=== PATIENT | male | born 1950 | race Caucasian/White ===

== ENCOUNTER 2019-10-28 00:26 | Outpatient (CLI) | payer MEDICARE, SELFPAY ==
[2019-10-28 18:28] LABS: SARS-CoV-2 RNA PCR Negative
== END 2019-10-28 00:27 | disposition home or self-care (01) ==
LOC: ANHCOVIDDT 00:27
PROVIDERS: PCP Internal Medicine; Visit Provider Urology
DX: Z01.812 Encounter for preprocedural laboratory examination (principal); Z20.828 Contact with and (suspected) exposure to other viral communicable diseases
CPT/HCPCS: 87635; C9803; U0003

== ENCOUNTER 2019-10-30 04:24 | Day surgery (SDC) | payer MEDICARE, SELFPAY ==
[2019-10-28 13:39] VITALS: BMI 27.0
[2019-10-30] VITALS (8 sets, daily range): BP systolic 105–126; BP diastolic 60–80; PULSE 80–104; RESP 14–24; TEMP 36.1–36.8; O2SAT 94–98
--- NOTE | ~2019-10-30 | XR_ITS ---
XR abdomen/kub 1V 10/30/2019 09:16 Indication: Left renal stone Procedure: KUB Comparison: No prior studies for comparison. Findings: Bowel gas pattern is nonobstructive. Moderate colonic fecal loading. There are left renal s tones, largest measuring 1.8 cm. Moderate lumbar spondylosis. Impression: 1: Left nephrolithiasis. Reviewed, dictated and finalized at location B. Impression: 1: Left nephrolithiasis.
--- NOTE | 2019-10-30 08:22 | ECG_ITS ---
Measurements Intervals [place] Rate: 100 P: 85 MA: 170 QRS: 263 QRSD: 110 T: 75 QT: 336 QTc: 435 Interpretive Statements SINUS TACHYCARDIA ATRIAL PREMATURE COMPLEX RIGHT AXIS DEVIATION INTRAVENTRICULAR CONDUCTION DELAY BORDERLINE R WAVE PROGRESSION, ANTERIOR LEADS INFERIOR INFARCT, AGE INDETERMINATE ABNORMAL ECG Electronically Signed On 10-30-2019 10:45:57 CDT by Adilson Anthony D.O.
--- NOTE | 2019-10-30 09:29 | WPDHPUPDATE1 ---
History and Physical Update Update Date/Time: 10/30/19 09:29 History and Physical has been reviewed, including an updated exam of the patient. There are NO changes in the patient's condition. Risks, benefits, and alternatives have been discussed and questions answered. Patient agrees to proceed with procedure. Plan for eswl left upj calculus.
[2019-10-30] MEDS: LACTATED RINGERS 1,000 ML 30 ML IV CONT ×2 (09:35→10:53)
--- NOTE | 2019-10-30 09:44 | P.PNAN_ITS ---
Anes - Initial Pre Proc Eval Procedure: Operation Date: 10/30/19 11:00 Proposed Procedures p Left Ureteral Extracorporeal Shock Wave Lithotripsy - Kash Guillory MD Date/Time: 10/30/19 09:44 Surgeon: Kash Guillory MD Pre Op Diagnosis: Left UPJ Stone Patient Data Age: 69 Gender: M Height: 1.75 m Weight: 88.6 kg Allergies Allergy/AdvReac Type Severity Reaction Status Date / Time No Known Allergies Allergy Mild Verified 10/28/19 13:30 Home Medications Medication Instructions Recorded Confirmed Type amlodipine 5 mg PO QAM 10/28/19 10/28/19 History aspirin [Aspirin Low Dose] 81 mg PO DAILY 10/28/19 10/28/19 History chlorthalidone 25 mg PO QAM 10/28/19 10/28/19 History hydrocodone-acetaminophen 1 tablet PO Q6H PRN 10/28/19 10/28/19 History metoprolol succinate 25 mg PO QAM 10/28/19 10/28/19 History multivit with min-folic acid 0.4 mg PO QAM 10/28/19 10/28/19 History [Daily Multiple For Men] ondansetron 4 mg PO Q6H PRN 10/28/19 10/28/19 History Patient hx anesthesia problems: none Family hx anesthesia problems: none [facility] Past Medical History Medical History (Updated 10/30/19 @ 09:45 by Dave Gtz DO) COPD (chronic obstructive pulmonary disease) History of tachycardia high baseline HR - 90-115, controlled with metoprolol History of ulcer disease Hypertension Osteoarthritis Social History Social History Smoking packs per day: 1.5 Smoking cigarettes per day: 30.0 Years smoked: 51 Smoking pack-years: 76.50 Smoking status: Current every day smoker Alcohol use details: FEW/YEAR Substance use: never Living arrangements: alone Spiritual care concerns: No Anes - Eval Final PreProcedure Day of Procedure 10/30/19 09:44 Patient weight: overweight Heart: regular rate and rhythm Lungs: clear to auscultation and normal air movement Airway: Mallampati scale class 1 Neurological: alert and oriented Last oral intake: >/= 8 hours ASA classification: III Emergent: no Anesthetic plan: proceed Anesthesia type and monitoring: general LMA and standard monitoring Informed Consent: The patient's anesthetic plan and its attendant risks and benefits were discussed with the patient/family/POA. Questions were solicited and answers provided to the satisfaction of the patient/family/POA.
[2019-10-30] MEDS: ceFAZolin 2 GM/D5W 50 ML 2 GM/50 ML BAG IVPB (10:05)
--- NOTE | 2019-10-30 10:50 | PM.PROC ---
Procedure Note - Detailed Date of procedure: 10/30/19 Pre-op diagnosis: Left UPJ Stone Post-op diagnosis: same Procedure performed: ESWL left UPJ calculus 1.6 cm Description of procedure: patient is taken to the operative suite and correctly identified. Once anesthesia was obtained the stone was localized in both planes. Two thousand five hundred shocks were given to the stone there appeared to be fragmentation. Patient was taken recovery room stable condition. He will follow up in 7-10 days with a KUB. Anesthesia: GLMA Surgeon: Kash Guillory MD Drains: No Packing: No Pathology: none sent Complications: No immediate complications Condition: stable Disposition: PACU
== END 2019-10-30 12:30 | disposition home or self-care (01) ==
PROVIDERS: PCP Internal Medicine; Visit Provider Urology
PROC: (CPT 50590; principal; 2019-10-30 11:00)
DX: N20.1 Calculus of ureter (principal); I10 Essential (primary) hypertension; J44.9 Chronic obstructive pulmonary disease, unspecified; R00.0 Tachycardia, unspecified; Z87.11 Personal history of peptic ulcer disease; Z79.82 Long term (current) use of aspirin; F17.200 Nicotine dependence, unspecified, uncomplicated
CPT/HCPCS: 50590; 74018; 93005; J0690; J1100; J2250; J2370; J2405; J2704; J3010; J7120

== ENCOUNTER 2019-11-02 10:38 | Outpatient (CLI) | payer MEDICARE, SELFPAY ==
--- NOTE | ~2019-11-02 | XR_ITS ---
XR abdomen/kub 1V 11/02/2019 11:01 Indication: Kidney stones Procedure: KUB Comparison: 10/30/2019 Findings: There are bilateral renal stones predominately on the left. Bowel gas pattern is nonobstruc tive. Moderate colonic fecal loading. Moderate lumbar spondylosis. Impression: 1: Bilateral nephrolithiasis with fragmentation of left renal stones since prior examination, consist ent with lithotripsy. Reviewed, dictated and finalized at location A. Impression: 1: Bilateral nephrolithiasis with fragmentation of left renal stones since prio r examination, consistent with lithotripsy.
== END 2019-11-02 10:39 | disposition home or self-care (01) ==
PROVIDERS: PCP Internal Medicine; Visit Provider Urology
DX: N20.0 Calculus of kidney (principal)
CPT/HCPCS: 74018

== ENCOUNTER 2019-11-30 11:02 | Outpatient (CLI) | payer MEDICARE, SELFPAY ==
--- NOTE | ~2019-11-30 | XR_ITS ---
XR abdomen/kub 1V 11/30/2019 11:18 Indication: Left kidney stone Procedure: KUB Comparison: 11/02/2019 Findings: There are bilateral renal stones. Decreased stone burden in the left kidney compared with p rior examination. Bowel gas pattern is nonobstructive. Moderate colonic fecal loading. Moderate lumba r spondylosis. Impression: 1:Bilateral nephrolithiasis with decreased stone burden in the left kidney compared with 11/02/2019. Reviewed, dictated and finalized at location B. Impression: 1:Bilateral nephrolithiasis with decreased stone burden in the left kidney comp ared with 11/02/2019.
== END 2019-11-30 11:03 | disposition home or self-care (01) ==
PROVIDERS: PCP Internal Medicine; Visit Provider Urology
DX: N20.0 Calculus of kidney (principal)
CPT/HCPCS: 74018

== ENCOUNTER 2020-09-26 08:09 | Outpatient (CLI) | payer MEDICARE, SELFPAY ==
[2020-09-26 09:13] LABS: Anion Gap 2 mmol/L (8-16); Blood Urea Nitrogen 15 mg/dL (9-20); Calcium 9.2 mg/dL (8.4-10.2); Carbon Dioxide 32 mmol/L (22-30); Chloride 102 mmol/L (98-107); Estimated Glomerular Filt Rate > 60; Glucose 93 mg/dL (65-110); Potassium 3.9 mmol/L (3.4-5.0); Sodium 136 mmol/L (137-145)
== END 2020-09-26 08:10 | disposition home or self-care (01) ==
PROVIDERS: Anesthesiology; PCP Internal Medicine; Visit Provider Surgery
DX: I10 Essential (primary) hypertension (principal)
CPT/HCPCS: 36415; 80048

== ENCOUNTER 2020-09-29 04:48 | Day surgery (SDC) | payer MEDICARE, SELFPAY ==
[2020-09-21 13:45] VITALS: BMI 26.9
[2020-09-29 10:09] VITALS: BP 123/75; PULSE 100; RESP 20; TEMP 36.7; O2SAT 96
[2020-09-29] MEDS: LACTATED RINGERS 1,000 ML 30 ML IV CONT ×2 (10:50→13:13)
--- NOTE | 2020-09-29 11:09 | P.PNAN_ITS ---
Anes - Initial Pre Proc Eval Procedure: Operation Date: 09/29/20 12:00 Proposed Procedures p Excision Skin Lesion Of Right Ankle - Paul Gonzalez MD Date/Time: 09/29/20 11:09 Surgeon: Paul Gonzalez MD Pre Op Diagnosis: pigmentation nevus of ankle Patient Data Age: 70 Gender: M Height: 1.77 m Weight: 85.8 kg Last Vital Signs Temp 36.7 C 09/29/20 10:09 Pulse 100 09/29/20 10:09 Resp 20 09/29/20 10:09 BP 123/75 09/29/20 10:09 Pulse Ox 96 09/29/20 10:09 Allergies Allergy/AdvReac Type Severity Reaction Status Date / Time No Known Allergies Allergy Mild Verified 09/29/20 10:41 Home Medications Medication Instructions Recorded Confirmed Type Daily Multiple For Men 0.4 mg PO QAM 10/28/19 09/29/20 History amlodipine 5 mg PO QAM 10/28/19 09/29/20 History aspirin [Aspirin Low Dose] 81 mg PO DAILY 10/28/19 09/29/20 History chlorthalidone 25 mg PO QAM 10/28/19 09/29/20 History metoprolol succinate 25 mg PO QAM 10/28/19 09/29/20 History celecoxib 200 mg capsule 200 mg PO DAILY 08/26/20 09/29/20 History umeclidinium-vilanterol [Anoro 1 ea INHALATION PRN PRN 09/21/20 09/29/20 History Ellipta] Patient hx anesthesia problems: none Family hx anesthesia problems: none [facility] Past Medical History Medical History COPD (chronic obstructive pulmonary disease) History of kidney stones History of tachycardia high baseline HR - 90-115, controlled with metoprolol History of ulcer disease Hypertension Osteoarthritis Surgical History Surgical History H/O nephrolithotomy with removal of calculi Family History Family History Father , age 80 Acute myocardial infarction Malignant neoplasm of prostate Diabetes mellitus Mother , age 93 Acute myocardial infarction Heart disease Sibling , age 62 Acute myocardial infarction Social History Social History Smoking packs per day: 1.5 Smoking cigarettes per day: 30.0 Years smoked: 50 Smoking pack-years: 75.00 Smoking status: Current every day smoker Tobacco type: cigarettes Alcohol intake: current Alcohol use details: FEW/YEAR Substance use: never Living arrangements: alone Spiritual care concerns: No Anes - Eval Final PreProcedure Day of Procedure 09/29/20 11:09 Patient weight: overweight Heart: regular rate and rhythm Lungs: clear to auscultation Airway: Mallampati scale class II Neurological: alert and oriented Last oral intake: >/= 8 hours ASA classification: III Emergent: no Anesthetic plan: proceed Anesthesia type and monitoring: general GIVS and standard monitoring Informed Consent: The patient's anesthetic plan and its attendant risks and benefits were discussed with the patient/family/POA. Questions were solicited and answers provided to the satisfaction of the patient/family/POA.
--- NOTE | 2020-09-29 12:22 | WPDHPUPDATE1 ---
History and Physical Update Update Date/Time: 09/29/20 12:22 History and Physical has been reviewed, including an updated exam of the patient. There are NO changes in the patient's condition. Risks, benefits, and alternatives have been discussed and questions answered. Patient agrees to proceed with procedure.
[2020-09-29] MEDS: ceFAZolin 2 GM/D5W 50 ML 2 GM/50 ML BAG IVPB (12:26)
[2020-09-29] MEDS: BUPIVACAINE/EPINEPHRINE 0.5% 50 ML VIAL (12:36)
[2020-09-29 13:13] VITALS: BP 101/69; PULSE 86; RESP 14
--- NOTE | 2020-09-29 13:32 | W.PM.PROC2 ---
Procedure Note - Detailed Date of Procedure 09/29/20 Pre-op Diagnosis pigmentation nevus of ankle Post-op Diagnosis same Procedure Performed Excision 2.5 cm pigmented nevus right ankle with 1 mm margins, 2.7 cm excision. 9 cm layered closure. 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 It got larger and the center changed color such that it had less pigment. Due to the changes in the nevus, he is taken to surgery now for complete excision. Findings None significant Description of Procedure patient was checked in the preoperative holding area. He was taken to surgery and IV sedation was administered. Prep and drape of the right ankle was carried out. The proposed elliptical excision was marked on the ankle. Local was infiltrated in the area of the anticipated incision. Incision was made and the lesion was excised. The resultant defect was measured and was 9 cm in length. Margins around the lesion were at least 1 mm. The wound was made hemostatic with the cautery. I undermined the distal and proximal skin edges with mostly blunt dissection. The wound was then closed using subcuticular interrupted 3 0 Vicryl suture. There was a considerable amount of tension during the closure and the foot had to be dorsiflexed to minimize this tension. Eventually the subcuticular sutures were placed. We then used vertical mattress sutures of 3 0 nylon to close the skin. The wound was dressed with Xeroform gauze fluffs Kerlix wrap and Spencer wrap. Patient was awakened and taken to outpatient surgery in good condition. Sponge and needle counts were correct x2. Estimated Blood Loss 5 Drains No Packing No Pathology yes ( Right ankle pigmented nevus) Complications None Condition stable Disposition same day
[2020-09-29 13:40] VITALS: BP 105/67; PULSE 77; RESP 14
[2020-09-29 14:10] VITALS: BP 112/68; PULSE 83; RESP 14
== END 2020-09-29 14:15 | disposition home or self-care (01) ==
PROVIDERS: PCP Internal Medicine; Visit Provider Surgery
PROC: (CPT 11403; principal; 2020-09-29 12:00)
DX: L82.1 Other seborrheic keratosis (principal); J44.9 Chronic obstructive pulmonary disease, unspecified; I10 Essential (primary) hypertension; M19.90 Unspecified osteoarthritis, unspecified site; Z79.82 Long term (current) use of aspirin; F17.210 Nicotine dependence, cigarettes, uncomplicated
CPT/HCPCS: 11403; 12034; 88305; J0690; J2704; J3010; J7120

== ENCOUNTER 2021-01-09 07:29 | Outpatient (RCR) | payer MEDICARE, SELFPAY ==
[2020-12-19 12:44] VITALS: BMI 28.2
--- NOTE | 2020-12-26 08:08 | WPDWOUNDNOTE ---
Wound Care Note Date/Time: 12/26/20 08:08 History: patient underwent excision of a pigmented nevus of the right ankle on 09/29/2020. 9 cm layered closure was performed. Patient is a smoker and has developed a chronic wound as the wound edges . Wound history: Central portion of wound developed necrosis and leaving a chronic right ankle wound. This was treated in the office with silver gel dressing and gauze daily. He was last seen in the office on November 29, 2020. he was referred to [facility] and was initially evaluated on 12/19/2020. Mepilex transfer was added to the silver gauze daily dressings. Also applying gentamicin ointment to the wound bed. Wound approximation: No Wound width: 1.7 cm Wound length: 0.4 cm Wound depth: 0.2 cm Drainage: pink, serous Surrounding tissue appearance: dry, healing Tunneling: none Percentage granulation tissue: 100% Treatment/Procedures: none Dressings: continue gentamicin ointment and silver gel to wound bed with Mepilex border daily. Wound is healing nicely at this point. Recheck in 2 weeks. Assessment and Plan Assessment and plan (1) Open wound of right lower leg: Qualifiers: Encounter type: subsequent encounter Qualified Code(s): S81.801D - Unspecified open wound, right lower leg, subsequent encounter Code(s): S81.801A - Unspecified open wound, right lower leg, initial encounter Status: Chronic Assessment and Plan: Greatly reduced in length. Also less with. Making good strides. Continue gentamicin ointment, silver gel and Mepilex transfer daily. Recheck in 2 weeks. (2) Tobacco abuse: Code(s): Z72.0 - Tobacco use Status: Chronic Assessment and Plan: Advised to cut back or quit. Review of Systems Review of Systems: All systems reviewed & are unremarkable except as noted in HPI and below ( Wound care note) Exam Extrem: Right lower extremity: ankle ( right ankle open wound -see details in Wound note.)
--- NOTE | 2021-01-10 17:25 | WPDWOUNDNOTE ---
Wound Care Note Date/Time: 01/10/21 17:25 History: Excision of a benign mole from left lower ankle. Wound history: Center of the wound edges necrosed leaving a chronic wound. He has been treating this with silver gel and gentamicin ointment as well as Mepilex transfer and gauze daily. Wound approximation: No Wound width: 0.7 cm Wound length: 0.2 cm Wound depth: 0.1 cm Drainage: serosanguineous Surrounding tissue appearance: healthy, dry Tunneling: none Percentage granulation tissue: 100 Treatment/Procedures: none Dressings: continue gentamicin ointment with silver gel Mepilex transfer and gauze daily. Wound is nearly healed. Discontinue dressing changes once there are no open areas. Assessment and Plan Assessment and plan (1) Open wound of right lower leg: Qualifiers: Encounter type: subsequent encounter Qualified Code(s): S81.801D - Unspecified open wound, right lower leg, subsequent encounter Code(s): S81.801A - Unspecified open wound, right lower leg, initial encounter Status: Chronic Assessment and Plan: wound should be closed within another 2 weeks. Continue present wound care until completely closed then discontinue. No further follow-up planned. If wound does not heal or if free opens please call and I will be happy to see him back in the office. (2) Tobacco abuse: Code(s): Z72.0 - Tobacco use Status: Chronic Assessment and Plan: Advised to decrease or quit smoking. No doubt this played a role in his wound healing. Review of Systems Review of Systems: All systems reviewed & are unremarkable except as noted in HPI and below ( Wound care note) Exam Extrem: Right lower extremity: ankle ( nearly healed small residual open wound)
== END 2021-03-03 12:05 | disposition home or self-care (01) ==
LOC: ANHWOC 07:29
PROVIDERS: PCP Internal Medicine; Visit Provider Surgery
DX: S81.801D Unspecified open wound, right lower leg, subsequent encounter (principal)
CPT/HCPCS: 99212; 99213; A9270; G0463

== ENCOUNTER 2021-01-11 08:16 | Outpatient (CLI) | payer MEDICARE, SELFPAY ==
--- NOTE | ~2021-01-11 | US_ITS ---
EXAMINATION: US art doppler w press LE BI DATE: 01/11/2021 09:00 INDICATION: Peripheral arterial disease. Claudication. TECHNIQUE: Segmental pressures and plethysmographic and Doppler waveforms of the brachial and lower e xtremity arteries were obtained. COMPARISON: None. FINDINGS: Right and left brachial artery pressures of 120 mm Hg and 135 mm Hg, respectively, are concordant (no rmal difference <= 30 mmHg). The right high-thigh pressure index is 1.25 (normal > 1.2). The right ankle-brachial index (NALINI) is 1 .14 (normal >= 0.9-1.0). The right great toe-brachial index (TBI) is 0.61 (normal >= 0.65). Arterial Doppler waveforms are at least triphasic in common femoral artery and superficial femoral artery and biphasic in popliteal artery and at the ankle. The left high-thigh pressure index is 1.16. The left NALINI is 1.11. The left TBI is 0.61. Arterial Dopp ler waveforms are at least triphasic in common femoral artery, biphasic in superficial femoral artery and popliteal artery, and at least triphasic at the ankle. IMPRESSION: 1. Normal ABIs and mildly decreased TBIs, consistent with arterial occlusive disease. Note that ABIs may be overestimated if arteries are calcified. Reviewed, dictated and finalized at location A. [employer] IMPRESSION: 1. Normal ABIs and mildly decreased TBIs, consistent with arterial occlusive di sease. Note that ABIs may be overestimated if arteries are calcified.
== END 2021-01-11 08:17 | disposition home or self-care (01) ==
LOC: ANHIMG 08:18
PROVIDERS: PCP Internal Medicine; Visit Provider Internal Medicine
DX: I73.9 Peripheral vascular disease, unspecified (principal)
CPT/HCPCS: 93923

== ENCOUNTER 2021-03-13 01:31 | Day surgery (SDC) | payer MEDICARE, SELFPAY ==
[2021-03-01 14:29] VITALS: BMI 29.0
[2021-03-13 10:19] VITALS: BP 130/80; PULSE 130; RESP 16; TEMP 35.8; O2SAT 96; BMI 28.5
--- NOTE | 2021-03-13 10:20 | SUR.PREOP ---
Dr. Lopez made aware of the 130 heart rate, per pt he did take his metoprolol this am at 0815.
--- NOTE | 2021-03-13 10:21 | WPDGICN ---
Assessment and Plan Assessment and plan (1) Encounter for screening colonoscopy: Code(s): Z12.11 - Encounter for screening for malignant neoplasm of colon Status: Acute Assessment and Plan: Patient presents for neoplasia screening colonoscopy. Appears be at average risk for colon polyps. Further recommendations will be given after endoscopy. GI Consult Note Consult date/time: 03/13/21 10:21 HPI: Sunny Saavedra is a 70 year old male Presents for screening colonoscopy. Patient's current weight appetite and bowel movements are normal. Patient states that he has had no blood in his stools. His family history is noncontributory. He presents for neoplasia screening colonoscopy. Review of Systems Review of Systems: All systems reviewed & are unremarkable except as noted in HPI and below PMFSH Past Medical History Medical History COPD (chronic obstructive pulmonary disease) History of kidney stones History of tachycardia high baseline HR - 90-115, controlled with metoprolol History of ulcer disease Hypertension Osteoarthritis Surgical History Surgical History H/O nephrolithotomy with removal of calculi History of excision of lesion 09/29/20 Excision 2.5 cm pigmented nevus right ankle with 1 mm margins, 2.7 cm excision. 9 cm layered closure. Family History Family History Father , age 80 Acute myocardial infarction Malignant neoplasm of prostate Diabetes mellitus Mother , age 93 Acute myocardial infarction Heart disease Sibling , age 62 Acute myocardial infarction Social History Social History Smoking packs per day: 1.5 Smoking cigarettes per day: 30.0 Years smoked: 45 Smoking pack-years: 67.50 Smoking status: Current every day smoker Tobacco type: cigarettes Alcohol intake: current Alcohol use details: Occasional Substance use: never Spiritual care concerns: No Meds Home Medications and Allergies Home Medications Medication Instructions Recorded Confirmed Type amlodipine 5 mg PO QAM 10/28/19 03/13/21 History chlorthalidone 25 mg PO QAM 10/28/19 03/13/21 History metoprolol succinate 25 mg PO QAM 10/28/19 03/13/21 History multivit with min-folic acid 0.4 mg PO QAM 10/28/19 03/13/21 History [Daily Multiple For Men] celecoxib 200 mg capsule 200 mg PO DAILY 08/26/20 03/13/21 History Anoro Ellipta 1 ea INHALATION PRN PRN 09/21/20 03/13/21 History clotrimazole-betamethasone 1 applic TOPICAL BID PRN 12/19/20 03/13/21 History aspirin [Adult Aspirin] 81 mg PO DAILY 03/01/21 03/13/21 History Allergies Allergy/AdvReac Type Severity Reaction Status Date / Time No Known Allergies Allergy Mild Verified 03/13/21 10:17 Vital Signs Vital Signs - 24 hr 03/13/21 10:19 Temperature 96.5 F L Pulse Rate 130 H Respiratory Rate 16 Blood Pressure 130/80 Pulse Oximetry 96 Exam Narrative: Physical exam reveals patient to be alert. Vital signs stable. HEENT exam is unremarkable. Patient is anicteric. Lungs are clear to auscultation and percussion. Heart is without murmur or extra sounds. Abdominal exam bowel sounds are present soft nontender with no organomegaly. Digital external rectal exam is normal.
--- NOTE | 2021-03-13 10:24 | WPDANESEPPF ---
Anes - Initial Pre Proc Eval Procedure: Operation Date: 03/13/21 11:00 Proposed Procedures p Screening Colonoscopy - Javed Gonzalez MD Date/Time: 03/13/21 10:24 Surgeon: Javed Gonzalez MD Pre Op Diagnosis: neoplasm screening Patient Data Age: 70 Gender: M Height: 1.75 m Weight: 87.7 kg Last Vital Signs Temp 35.8 C L 03/13/21 10:19 Pulse 130 H 03/13/21 10:19 Resp 16 03/13/21 10:19 BP 130/80 03/13/21 10:19 Pulse Ox 96 03/13/21 10:19 Allergies Allergy/AdvReac Type Severity Reaction Status Date / Time No Known Allergies Allergy Mild Verified 03/13/21 10:17 Home Medications Medication Instructions Recorded Confirmed Type amlodipine 5 mg PO QAM 10/28/19 03/13/21 History chlorthalidone 25 mg PO QAM 10/28/19 03/13/21 History metoprolol succinate 25 mg PO QAM 10/28/19 03/13/21 History multivit with min-folic acid 0.4 mg PO QAM 10/28/19 03/13/21 History [Daily Multiple For Men] celecoxib 200 mg capsule 200 mg PO DAILY 08/26/20 03/13/21 History Anoro Ellipta 1 ea INHALATION PRN PRN 09/21/20 03/13/21 History clotrimazole-betamethasone 1 applic TOPICAL BID PRN 12/19/20 03/13/21 History aspirin [Adult Aspirin] 81 mg PO DAILY 03/01/21 03/13/21 History Patient hx anesthesia problems: none Family hx anesthesia problems: none Results Review: All pre-operative results and documents have been reviewed as part of the pre-operative evaluation. [facility] Past Medical History Medical History COPD (chronic obstructive pulmonary disease) History of kidney stones History of tachycardia high baseline HR - 90-115, controlled with metoprolol History of ulcer disease Hypertension Osteoarthritis Surgical History Surgical History H/O nephrolithotomy with removal of calculi History of excision of lesion 09/29/20 Excision 2.5 cm pigmented nevus right ankle with 1 mm margins, 2.7 cm excision. 9 cm layered closure. Family History Family History Father , age 80 Acute myocardial infarction Malignant neoplasm of prostate Diabetes mellitus Mother , age 93 Acute myocardial infarction Heart disease Sibling , age 62 Acute myocardial infarction Social History Social History Smoking packs per day: 1.5 Smoking cigarettes per day: 30.0 Years smoked: 45 Smoking pack-years: 67.50 Smoking status: Current every day smoker Tobacco type: cigarettes Alcohol intake: current Alcohol use details: Occasional Substance use: never Spiritual care concerns: No Anes - Eval Final PreProcedure Day of Procedure 03/13/21 10:24 Patient weight: overweight Heart: tachycardia Lungs: clear to auscultation Airway: Mallampati scale class 1 Neurological: alert and oriented Last oral intake: >/= 8 hours ASA classification: III Emergent: no Anesthetic plan: proceed Anesthesia type and monitoring: general GIVS and standard monitoring Results Review: All pre-operative results and documents have been reviewed as part of the pre-operative evaluation. Informed Consent: The patient's anesthetic plan and its attendant risks and benefits were discussed with the patient/family/POA. Questions were solicited and answers provided to the satisfaction of the patient/family/POA.
[2021-03-13] MEDS: LACTATED RINGERS 1,000 ML 150 ML IV CONT (10:29)
[2021-03-13 11:13] VITALS: BP 98/69; PULSE 108; RESP 19; O2SAT 92
[2021-03-13 11:23] VITALS: BP 120/84; PULSE 103; RESP 19; O2SAT 100
[2021-03-13 11:33] VITALS: BP 123/83; PULSE 100; RESP 18; O2SAT 98
== END 2021-03-13 11:39 | disposition home or self-care (01) ==
PROVIDERS: PCP Internal Medicine; Visit Provider Internal Medicine Gastroenterology
PROC: 0DJD8ZZ Inspection of Lower Intestinal Tract, Via Natural or Artificial Opening Endoscopic (ICD-10-PCS; CPT 45378; principal; 2021-03-13 11:00)
DX: Z12.11 Encounter for screening for malignant neoplasm of colon (principal); K57.30 Diverticulosis of large intestine without perforation or abscess without bleeding; K63.5 Polyp of colon; K62.1 Rectal polyp; J44.9 Chronic obstructive pulmonary disease, unspecified; I10 Essential (primary) hypertension; F17.210 Nicotine dependence, cigarettes, uncomplicated; Z79.51 Long term (current) use of inhaled steroids; Z79.82 Long term (current) use of aspirin
CPT/HCPCS: 45385; 88305; J2001; J2704; J7120

== ENCOUNTER → 2021-08-09 12:53 | Outpatient (CLI) | payer MEDICARE, SELFPAY ==
--- NOTE | ~2021-08-09 | CT_ITS ---
EXAMINATION: CT diagnostic chest w con DATE: 08/09/2021 13:46 INDICATION: Lung nodule. Shortness of breath. COPD. Smoker. TECHNIQUE: Computed tomography (CT) of the chest was performed with 75 CC Omnipaque 300 intravenous c ontrast. Automated exposure control and iterative reconstruction technique were employed. Exam dose: 396.87 mGy-cm total exam DLP. COMPARISON: None FINDINGS: Normal heart size. No pericardial or pleural effusion. Normal size and homogeneous enhancement of the thyroid gland. No thoracic aortic aneurysm or dissecti on. There is thoracic aortic and great vessel and coronary calcification. No hilar or mediastinal mass lesion or lymphadenopathy. No axillary lymphadenopathy. No pericardial or pleural effusion. Mild linear scarring in the anterior segment of the right upper lobe. No pulmonary infiltrate or cons olidation or pulmonary mass lesion. Small sliding hiatal hernia. The liver is studded with innumerable cysts, many of which are quite small. The largest cyst is appro ximately 3.4 cm, situated in the posterior right hepatic lobe. Normal morphology of the adrenal glands. There is minimal concavity of the superior vertebral endplate of T4 and more prominent concavity of t he superior vertebral endplates of T7 and T8, likely old compression fractures. Prominent depression of the superior endplate of L2. Degenerative spurring of the thoracic and lumbar spine. IMPRESSION: No pulmonary mass lesion is detected Small sliding hiatal hernia Cupping of superior vertebral endplates, mild at T4, moderate at T7 and T8 and very prominent at L2 Reviewed, dictated and finalized at Location A. Reviewed, dictated and finalized at location B.
[2021-08-09 13:14] LABS: Estimated Glomerular Filt Rate > 60
== END ==
PROVIDERS: PCP Internal Medicine; Visit Provider Internal Medicine
DX: R91.1 Solitary pulmonary nodule (principal); K44.9 Diaphragmatic hernia without obstruction or gangrene
CPT/HCPCS: 71260; Q9967

== ENCOUNTER → 2022-09-25 10:18 | Outpatient (CLI) | payer MEDICARE, SELFPAY ==
--- NOTE | ~2022-09-25 | CT_ITS ---
EXAMINATION:CT lung screening DATE: 09/25/2022 10:30 INDICATION: Personal history of nicotine dependence. Current smoker with 50 pack year history. TECHNIQUE: Computed tomography (CT) of the chest was performed without intravenous contrast. Automate d exposure control and iterative reconstruction technique were employed. The dose-length product (DLP ) was 222.60 mGy-cm. COMPARISON: Chest CT 08/09/2021 FINDINGS: There is mild emphysema. A calcified right lung nodule is consistent with old granulomatous disease. There is mild atelectasis bilaterally. No pleural effusion. The heart size is normal. There are coronary artery calcifications. No pericardial effusion. There is a small sliding hiatal hernia. There are cysts in the liver measuring up to 3.5 cm . There is a 1.8 cm mass left adrenal gland oleksandr uring low-attenuation, consistent with an adenoma. There is mild thoracic spondylosis. There is mild chronic height loss of multiple vertebral bodies. IMPRESSION: 1. Lung-RADS category 1: Negative. Continue annual screening with noncontrast low-dose chest CT in 12 months. Reviewed, dictated and finalized at location A. IMPRESSION: 1. Lung-RADS category 1: Negative. Continue annual screening with noncontrast l ow-dose chest CT in 12 months.
== END ==
PROVIDERS: PCP Family Medicine; Visit Provider Family Medicine
DX: Z12.2 Encounter for screening for malignant neoplasm of respiratory organs (principal); Z87.891 Personal history of nicotine dependence
CPT/HCPCS: 71271

== ENCOUNTER → 2023-04-08 15:44 | Outpatient (CLI) | payer MEDICARE, SELFPAY ==
--- NOTE | ~2023-04-08 | CT_ITS ---
EXAMINATION: CT pelvis wo con DATE: 04/08/2023 15:54 INDICATION: Inguinal hernia. TECHNIQUE: Computed tomography (CT) of the pelvis was performed without intravenous contrast. Automat ed exposure control and iterative reconstruction technique were employed. The dose-length product was 766.95 mGy-cm. COMPARISON: None FINDINGS: The visualized portion of right kidney demonstrates 3 stones measuring up to 4 mm. There is calcified atherosclerosis of the aorta and many of the other arteries. There is a right inguinal her kojo containing the appendix. There is a left inguinal hernia containing nonobstructed small bowel. Th ere are no pathologically enlarged lymph nodes. There is no free intraperitoneal fluid. There is nunu re lumbar spondylosis. IMPRESSION: 1. Right inguinal hernia containing the appendix. 2. Left inguinal hernia containing nonobstructed small bowel. Reviewed, dictated and finalized at location A. [employer]
== END ==
PROVIDERS: PCP Surgery; Visit Provider Surgery
DX: K40.20 Bilateral inguinal hernia, without obstruction or gangrene, not specified as recurrent (principal)
CPT/HCPCS: 72192

== ENCOUNTER 2023-05-21 11:32 | Outpatient (CLI) | payer MEDICARE, SELFPAY ==
--- NOTE | ~2023-05-21 | XR_ITS ---
EXAMINATION: XR chest 2V DATE: 05/21/2023 12:36 INDICATION: Preoperative testing for inguinal hernia repair with risk factors of COPD and hypertensio n TECHNIQUE: PA and lateral views of the chest were obtained. COMPARISON: None FINDINGS: The lungs are clear with no focal airspace opacities, pulmonary edema, pleural effusion or pneumothor ax. The cardiomediastinal silhouette is normal. Mild thoracic spondylosis. IMPRESSION: 1. No acute cardiopulmonary disease. Reviewed, dictated and finalized at location B.
--- NOTE | 2023-05-21 12:11 | ECG_ITS ---
Measurements Intervals [place] Rate: 117 P: 78 MI: 187 QRS: -87 QRSD: 101 T: 51 QT: 318 QTc: 387 Interpretive Statements SINUS TACHYCARDIA POSSIBLE ANTERIOR MYOCARDIAL INFARCTION [30 ms Q WAVE IN V3/V4, OR R < 0.2mV IN V4], OF INDETERMINATE AGE INFERIOR MYOCARDIAL INFARCTION [40+ ms Q WAVE AND/OR ST/T ABNORMALITY IN II/aVF], OF INDETERMINATE AGE LOW VOLTAGE ABNORMAL ECG SEE SCANNED COPY FOR SIGNATURE MTDD
[2023-05-21 12:22] LABS: Basophils Absolute Auto 0.1 K/mm3 (0.0-0.1); Basophils Percent Auto 0.4 % (0.2-1.2); Eosinophils Absolute Auto 0.2 K/mm3 (0-0.3); Eosinophils Percent Auto 1.3 % (0-4.4); Hematocrit 46.5 % (42.0-52.0); Hemoglobin 15.4 g/dL (14.0-18.0); Immature Granulocyte Absolute 0.07 K/mm3 (0.00-0.031); Immature Granulocyte Percent A 0.6 % (0-0.5); Mean Corpuscular HGB Conc 33.1 g/dl (32-36); Mean Corpuscular Hemoglobin 32.2 pg (26-34); Mean Corpuscular Volume 97.3 fl (80-100); Mean Platelet Volume 9.4 fl (7.4-10.4); Monocytes Absolute Auto 0.7 K/mm3 (0.1-0.6); Monocytes Percent Auto 5.8 % (2.6-8.5); Neutrophils Absolute Auto 8.8 K/mm3 (1.3-6.7); Neutrophils Percent Auto 74.9 % (45.5-73.1); Platelet Count Result 273 k/mm3 (150-375); Red Blood Count 4.78 M/mm3 (4.6-6.20); Red Cell Distribution Width 13.1 % (11.5-14.5); White Blood Count 11.7 K/mm3 (4.5-10.0)
[2023-05-21 12:39] LABS: Anion Gap 8 mmol/L (4-12); Blood Urea Nitrogen 17 mg/dL (9-20); Calcium 9.8 mg/dL (8.4-10.2); Carbon Dioxide 29 mmol/L (22-30); Chloride 103 mmol/L (98-107); Estimated Glomerular Filt Rate > 60; Glucose 128 mg/dL (65-110); Sodium 140 mmol/L (137-145)
== END 2023-05-21 11:33 | disposition home or self-care (01) ==
LOC: ANHSURGERY 11:37
PROVIDERS: PCP Family Medicine; Visit Provider Surgery
DX: Z01.818 Encounter for other preprocedural examination (principal); K40.90 Unilateral inguinal hernia, without obstruction or gangrene, not specified as recurrent; J44.9 Chronic obstructive pulmonary disease, unspecified; I10 Essential (primary) hypertension; R00.0 Tachycardia, unspecified; R94.31 Abnormal electrocardiogram [ECG] [EKG]
CPT/HCPCS: 36415; 71046; 80048; 85025; 86850; 86900; 86901; 93005

== ENCOUNTER 2023-05-22 10:58 | Outpatient (CLI) | payer MEDICARE, SELFPAY ==
[2023-05-22 11:20] LABS: Appearance Urine Clear (Clear); Bilirubin Urine Negative (Negative); Blood Urine Negative (Negative); Color Urine Yellow (Yellow); Glucose Urine UA Negative (Negative); Ketones Urine Negative (Negative); Leukocyte Esterase Ur Negative LEU/UL (Negative); Nitrate Urine Negative (Negative); Protein Urine Negative (Negative); Specific Grav Ur 1.014 (1.001-1.035); pH Urine 7.5 (5.0-9.0)
[2023-05-22 11:23] LABS: Add Urine Microscopic? NO
== END 2023-05-22 10:59 | disposition home or self-care (01) ==
LOC: ANHLAB 10:58
PROVIDERS: PCP Family Medicine; Visit Provider Surgery
DX: K40.90 Unilateral inguinal hernia, without obstruction or gangrene, not specified as recurrent (principal); D72.829 Elevated white blood cell count, unspecified
CPT/HCPCS: 81003

== ENCOUNTER 2023-05-23 00:42 | Day surgery (SDC) | payer MEDICARE, SELFPAY ==
[2023-05-20 11:44] VITALS: BMI 33.7
--- NOTE | 2023-05-20 11:52 | PC.NURSE ---
PRE-OP INSTRUCTIONS, PLEASE READ CAREFULLY Report to the Outpatient Waiting Room, entrance under the green pavilion located off [facility], at time _1000_ on date _05/23/23_. Planned Procedure Time: _1200_. Time changes happen often and if your time is changed the preop area will call you the afternoon before. - You and your visitor will be asked to self-screen and do not enter if you have any COVID symptoms. - A mask is optional within the hospital at this time. Patients may have clear liquids (water, carbonated beverages, clear teas, apple juice) until 3 hours prior to surgery (0900 AM) with a maximum of 20 ounces. - No food from midnight until time of surgery Take the following medications with a SIP of water the morning of surgery: _AMLODIPINE, CELECOXIB, CYCLOBENZAPRINE, METOPROLOL, & USE YOUR INHALER_ DO NOT STOP ANY OF YOUR OTHER PRESCRIPTION MEDICATIONS PRIOR TO SURGERY ?EXCEPT THE FOLLOWING Medications to discontinue - _CILOSTAZOL INSTRUCTED BY DR. BLUNT, Date to take last dose_CALL OFFICE FOR INSTRUCTIONS_ Medications to discontinue per ANESTHESIA - _MULTIVITAMIN 3 DAYS PRIOR TO SURGERY, Date to take last dose 05/20/23_ Please no make-up, nail mongolian, hairspray, perfume, deodorant, or body powder the day of surgery. No jewelry (including any body piercings) or valuables the day of surgery, leave them at home. Please take a shower or bath the night before, or the morning of, surgery with an antibacterial soap. Wear comfortable, loose fitting clothing. Children are encouraged to wear pajamas. - Jewelry must be removed prior to entering the operating room. Rings and piercings that are not removed may be cut off. - The hospital will not accept responsibility for valuables. - Please leave all valuables, including medications, at home the day of surgery. If you are going home after surgery, a licensed driver utility worker must drive you home. - NO public transportation without another adult if you receive anesthesia. - We recommend that an adult stay with you for 24 hours following discharge. - We also recommend that you do not drive, make important decision, drink alcoholic beverages, or take any drugs that were not prescribed by your health care provider for at least 24 hours after your discharge time. Follow any additional instructions given to you from your surgeon. If you or anyone in your household have experienced Covid symptoms in the past week, please notify your surgeon or the nurse liaison at the phone number below for possible testing. Telephone instructions given to _PATIENT_and asked if any additional questions and then verbalized understanding. Patient advised to call surgeon office or pre surgery nurse liaison [phone] if any additional questions.
--- NOTE | 2023-05-22 09:20 | PM.SD2 ---
Same Day Admit/Disch: HPI History of Present Illness Chief complaint: Bilateral inguinal hernia Narrative: Sunny Saavedra is a 72 year old male who presented to the office in March with a large left inguinal hernia into the scrotum. No right inguinal hernia was appreciated on exam. Patient had a CT scan of the pelvis which showed a small right inguinal hernia with the appendix in the hernia defect. He is a long-term smoker with COPD and peripheral vascular disease. He is taken to surgery at this time for robotic laparoscopic repair bilateral inguinal hernias with mesh. [facility] Past Medical History Medical History Annual physical exam Bilateral hand numbness Bilateral lower extremity pain Claudication COPD (chronic obstructive pulmonary disease) Dehydration Encounter for screening for malignant neoplasm of prostate History of kidney stones History of tachycardia high baseline HR - 90-115, controlled with metoprolol History of ulcer disease Hospital discharge follow-up Hyperlipidemia Hypertension Inguinal hernia Osteoarthritis Restless leg syndrome Squamous cell cancer of skin of forearm Surgical History Surgical History H/O nephrolithotomy with removal of calculi History of excision of lesion 09/29/20 Excision 2.5 cm pigmented nevus right ankle with 1 mm margins, 2.7 cm excision. 9 cm layered closure. Family History Family History Father , age 80 Acute myocardial infarction Malignant neoplasm of prostate Diabetes mellitus Kidney disease Mother , age 93 Acute myocardial infarction Heart disease Hypertension Sibling , age 62 Acute myocardial infarction Breast cancer Malignant neoplasm of prostate Heart disease Social History Social History Smoking packs per day: 1.5 Smoking cigarettes per day: 30.0 Years smoked: 45 Smoking pack-years: 67.50 Smoking status: Current every day smoker Tobacco type: cigarettes Second hand tobacco smoke exposure: Yes Alcohol intake: current Alcohol use details: VERY RARELY - COUPLE TIMES A YEAR Substance use: never Substance use type: does not use Living arrangements: alone Occupation/Education: retired Gender identity (if verbalized by the patient): Male Spiritual care concerns: No Same Day Admit/Disch: Med Pre-admit Medications Home Medications Medication Instructions Recorded Confirmed Type multivitamin with minerals-folic 0.4 mg PO QAM 10/28/19 05/20/23 History acid 0.4 mg tablet (Daily Multiple For Men) aspirin 81 mg tablet 81 mg PO DAILY 03/01/21 05/20/23 History metoprolol succinate 25 mg See Rx Instructions .Route 09/28/22 05/20/23 Rx tablet,extended release 24 hr .COMPLEX #90 tabs cilostazol 50 mg tablet 50 mg PO BID #180 tabs 12/10/22 05/20/23 Rx budesonide 160 mcg-glycopyr 9 2 inh inhalation BID #5.9 grams 02/14/23 05/20/23 Rx mcg-formot 4.8 mcg/actuation HFA inhaler (Breztri Aerosphere) celecoxib 200 mg capsule See Rx Instructions .Route 03/13/23 05/20/23 Rx .COMPLEX #30 caps magnesium 250 mg tablet 250 mg PO DAILY 03/26/23 05/20/23 History chlorthalidone 25 mg tablet See Rx Instructions .Route 03/27/23 05/20/23 Rx .COMPLEX #90 tabs atorvastatin 20 mg tablet See Rx Instructions .Route 05/09/23 05/20/23 Rx .COMPLEX #90 tabs amlodipine 5 mg tablet See Rx Instructions .Route 05/17/23 05/20/23 Rx .COMPLEX #90 tabs cyclobenzaprine 10 mg tablet 10 mg PO BID #60 tabs 05/21/23 Rx ibuprofen 600 mg tablet 600 mg PO Q6H PRN pain #14 tabs 05/23/23 Rx oxycodone-acetaminophen 5 mg-325 1 - 2 tablet PO Q6H PRN pain #20 05/23/23 Rx mg tablet (Percocet) tabs Review of Systems Review of Systems All systems reviewed & are unremarkable except as noted in H
[2023-05-23] VITALS (10 sets, daily range): BP systolic 123–143; BP diastolic 71–90; PULSE 97–115; RESP 12–20; TEMP 36.2–37; O2SAT 93–100; BMI 33.3
[2023-05-23] MEDS: LACTATED RINGERS 1,000 ML 30 ML IV CONT ×2 (10:40→15:09)
[2023-05-23 10:52] LABS: Basophils Absolute Auto 0.1 K/mm3 (0.0-0.1); Basophils Percent Auto 0.5 % (0.2-1.2); Eosinophils Absolute Auto 0.1 K/mm3 (0-0.3); Eosinophils Percent Auto 0.8 % (0-4.4); Hematocrit 49.4 % (42.0-52.0); Hemoglobin 16.4 g/dL (14.0-18.0); Immature Granulocyte Absolute 0.06 K/mm3 (0.00-0.031); Immature Granulocyte Percent A 0.6 % (0-0.5); Lymphocytes Absolute Auto 1.56 K/mm3 (0.9-3.2); Lymphocytes Percent Auto 15.3 % (18.3-44.2); Mean Corpuscular HGB Conc 33.2 g/dl (32-36); Mean Corpuscular Hemoglobin 32.3 pg (26-34); Mean Corpuscular Volume 97.4 fl (80-100); Mean Platelet Volume 9.5 fl (7.4-10.4); Monocytes Absolute Auto 0.5 K/mm3 (0.1-0.6); Monocytes Percent Auto 4.9 % (2.6-8.5); Neutrophils Absolute Auto 7.9 K/mm3 (1.3-6.7); Neutrophils Percent Auto 77.9 % (45.5-73.1); Platelet Count Result 264 k/mm3 (150-375); Red Blood Count 5.07 M/mm3 (4.6-6.20); Red Cell Distribution Width 13.2 % (11.5-14.5); White Blood Count 10.2 K/mm3 (4.5-10.0)
[2023-05-23] MEDS: ACETAMINOPHEN 500 MG TABLET 1000 MG PO (10:52)
[2023-05-23] MEDS: KETOROLAC 15 MG/ML VIAL (*BKC) IV PUSH (10:52)
--- NOTE | 2023-05-23 11:15 | SUR.PREOP ---
1115- Notified Dr. Dowd patient's HR in 120's upon arrival to pre-op room 5. Patient reports history of tachycardia and he did take his BP medications. Upon recheck patient's HR in low 100's. Per Dr. Dowd OK to proceed.
--- NOTE | 2023-05-23 11:30 | WPDANESEPPF ---
Anes - Initial Pre Proc Eval Procedure: Operation Date: 05/23/23 12:00 Proposed Procedures p Robotic Laparoscopic Bilateral Inguinal Hernia Repair with Mesh - Paul Gonzalez MD Date/Time: 05/23/23 11:30 Surgeon: Paul Gonzalez MD Pre Op Diagnosis: Bilateral inguinal hernia Patient Data Age: 72 Gender: M Height: 1.7 m Weight: 97.72 kg Allergies Allergy/AdvReac Type Severity Reaction Status Date / Time No Known Allergies Allergy Mild Verified 05/20/23 11:39 Home Medications Medication Instructions Recorded Confirmed Type multivitamin with minerals-folic 0.4 mg PO QAM 10/28/19 05/20/23 History acid 0.4 mg tablet (Daily Multiple For Men) aspirin 81 mg tablet 81 mg PO DAILY 03/01/21 05/20/23 History metoprolol succinate 25 mg See Rx Instructions .Route 09/28/22 05/20/23 Rx tablet,extended release 24 hr .COMPLEX #90 tabs cilostazol 50 mg tablet 50 mg PO BID #180 tabs 12/10/22 05/20/23 Rx budesonide 160 mcg-glycopyr 9 2 inh inhalation BID #5.9 grams 02/14/23 05/20/23 Rx mcg-formot 4.8 mcg/actuation HFA inhaler (Breztri Aerosphere) celecoxib 200 mg capsule See Rx Instructions .Route 03/13/23 05/20/23 Rx .COMPLEX #30 caps magnesium 250 mg tablet 250 mg PO DAILY 03/26/23 05/20/23 History chlorthalidone 25 mg tablet See Rx Instructions .Route 03/27/23 05/20/23 Rx .COMPLEX #90 tabs atorvastatin 20 mg tablet See Rx Instructions .Route 05/09/23 05/20/23 Rx .COMPLEX #90 tabs amlodipine 5 mg tablet See Rx Instructions .Route 05/17/23 05/20/23 Rx .COMPLEX #90 tabs cyclobenzaprine 10 mg tablet 10 mg PO BID #60 tabs 05/21/23 Rx Laboratory Tests 05/23/23 10:41 WBC 10.2 H K/mm3 (4.5-10.0) RBC 5.07 M/mm3 (4.6-6.20) Hgb 16.4 g/dL (14.0-18.0) Hct 49.4 % (42.0-52.0) MCV 97.4 fl (80-100) MCH 32.3 pg (26-34) MCHC 33.2 g/dl (32-36) RDW 13.2 % (11.5-14.5) Plt Count 264 k/mm3 (150-375) MPV 9.5 fl (7.4-10.4) Immature Gran % (Auto) 0.6 H % (0-0.5) Neut % (Auto) 77.9 H % (45.5-73.1) Lymph % (Auto) 15.3 L % (18.3-44.2) Worth % (Auto) 4.9 % (2.6-8.5) Eos % (Auto) 0.8 % (0-4.4) Baso % (Auto) 0.5 % (0.2-1.2) Lymph # (Auto) 1.56 K/mm3 (0.9-3.2) Worth # (Auto) 0.5 K/mm3 (0.1-0.6) Eos # (Auto) 0.1 K/mm3 (0-0.3) Baso # (Auto) 0.1 K/mm3 (0.0-0.1) Abs Immat Gran (auto) 0.06 H K/mm3 (0.00-0.031) Absolute Neuts (auto) 7.9 H K/mm3 (1.3-6.7) Absolute Nucleated RBC 0.000 K/mm3 (0.0-0.012) Nucleated RBC % 0.0 % (0.0-0.2) Patient hx anesthesia problems: none Family hx anesthesia problems: none Results Review: All pre-operative results and documents have been reviewed as part of the pre-operative evaluation. [facility] Past Medical History Medical History Annual physical exam Bilateral hand numbness Bilateral lower extremity pain Claudication COPD (chronic obstructive pulmonary disease) Dehydration Encounter for screening for malignant neoplasm of prostate History of kidney stones History of tachycardia high baseline HR - 90-115, controlled with metoprolol History of ulcer disease Hospital discharge follow-up Hyperlipidemia Hypertension Inguinal hernia Osteoarthritis Restless leg syndrome Squamous cell cancer of skin of forearm Surgical History Surgical History H/O nephrolithotomy with removal of calculi History of excision of lesion 09/29/20 Excision 2.5 cm pigmented nevus right ankle with 1 mm margins, 2.7 cm excision. 9 cm layered closure. Family History Family History Father , age 80 Acute myocardial infarction Malignant neoplasm of prostate Diabetes mellitus Kidney disease Mother , age 93 Acute myocardial infarction Heart disease Hypertension Siblin
--- NOTE | 2023-05-23 11:30 | WPDHPUPDATE1 ---
History and Physical Update Update Date/Time: 05/23/23 11:30 History and Physical has been reviewed, including an updated exam of the patient. There are NO changes in the patient's condition. Risks, benefits, and alternatives have been discussed and questions answered. Patient agrees to proceed with procedure.
[2023-05-23] MEDS: ceFAZolin 2 GM/D5W 50 ML 2 GM/50 ML BAG IVPB (12:00)
[2023-05-23] MEDS: BUPIVACAINE/EPINEPHRINE 0.5% 30 ML VIAL INFILTRATE (13:19)
--- NOTE | 2023-05-23 15:33 | W.PM.PROC2 ---
Procedure Note - Detailed Date of Procedure 05/23/23 Pre-op Diagnosis Bilateral inguinal hernia Post-op Diagnosis Same Procedure Performed Robotic laparoscopic repair bilateral inguinal hernias with mesh Surgeon Paul Gonzalez MD Fast Food Assistant Restaurant Manager Milena LAMA/Patrick LAMA Anesthesia General and Local Indications Patient presented to the office with a large left inguinal hernia that extended into the scrotum. No right inguinal hernia was noted in the office. He had a CT scan of the pelvis which did show a right inguinal hernia containing the appendix. The left inguinal hernia had several loops of small bowel eviscerated into the scrotum. He is taken to surgery now for robotic laparoscopic repair of both hernias Findings Large left inguinal scrotal hernia. I was able to reduce this hernia prior to surgery. He had an indirect hernia on both sides. The right-sided hernia was much smaller than the left-sided. Description of Procedure Patient was taken to surgery and induced into general anesthesia. I reduced his large left inguinal hernia and then used a 3 in Spencer wrap and wrapped the scrotum and penis to avoid severe scrotal distension with insufflation. The abdomen was prepped and draped. Four trocars were placed. We started with the [employer] [facility] 5 mm optical port. Under direct visualization, the 3 8 mm robotic trocars were placed. The abdomen was insufflated and the robotic arms were brought into the field. The camera port was docked and the camera was targeted. The health education assistant arms were docked and the instruments were placed. The surgeon went to the robotic console. Dissection began on the right side. A peritoneal anterior flap was created and dissection was carried out from anterior to posterior trying to preserve the integrity of the peritoneal flap throughout. The inferior epigastric vessels were identified. Dissection was kept close to the right sided rectus muscle until the dissection showed Cipriano's ligament. Additional dissection was continued broadly keeping the level of dissection pretty much the same all across the field. Medially the dissection was continued down to Cipriano's ligament. Dissection beyond Cipriano's ligament of about 2 cm was carried out. The bladder was carefully avoided. We dissected over to the pubis and beyond the midline. Dissection of the retro rectus fascia from the left rectus muscle was carried out on the medial side. We then continued the dissection laterally to the pectinate line. The hernia sac was then dissected. Transversalis fascia was divided over the anterior aspect of the sac. Applying traction anterior and medial to the sac, I was able to dissect out the cord structures from the hernia sac without difficulty. The sac was continued to be dissected until the end of the sac was found. The into the sac was then carefully dissected free of any remaining attachments including to any cord structures. I then continued dissection and dissected the peritoneum well away from the more posterior aspect of the inguinal canal structures so that there was plenty of room for mesh to be applied. With the right-side completed, I turned my attention to the left side. In similar fashion an anterior incision in the peritoneum across the left side of the lower pelvis was created. A peritoneal flap was developed in the same fashion as had been on the right side. The left side had a very large hernia defect. I had reduced the scrotal and inguinal canal contents once the patient was asleep so the hernia was completely reduced. Peritoneal flap was continued to be dissected broadly. At the left rectus muscle, similar dissection was carried out directly behind the rectus muscle down to the left-sided Cipriano's ligament. The bladder was again carefully avoided and dissection a couple of cm posterior to Cipriano's ligament was carried out. I then began dissection of the very large indirect hernia sac. The tissue of the
== END 2023-05-23 17:25 | disposition home or self-care (01) ==
PROVIDERS: PCP Family Medicine; Visit Provider Surgery
PROC: 8E0Y4CZ Robotic Assisted Procedure of Lower Extremity, Percutaneous Endoscopic Approach (ICD-10-PCS; CPT 49650; principal; 2023-05-23 12:00)
DX: K40.20 Bilateral inguinal hernia, without obstruction or gangrene, not specified as recurrent (principal); J44.9 Chronic obstructive pulmonary disease, unspecified; I73.9 Peripheral vascular disease, unspecified; E78.5 Hyperlipidemia, unspecified; I10 Essential (primary) hypertension; G25.81 Restless legs syndrome; F17.210 Nicotine dependence, cigarettes, uncomplicated; Z79.82 Long term (current) use of aspirin; Z79.51 Long term (current) use of inhaled steroids
CPT/HCPCS: 49650; S2900; 36415; 71046; 80048; 85025; 86850; 86900; 86901; 93005; A9270; C1781; J0690; J1100; J1885; J2405; J2704; J3010; J7120

== ENCOUNTER 2023-06-24 10:29 | Outpatient (CLI) | payer MEDICARE, SELFPAY ==
--- NOTE | ~2023-06-24 | US_ITS ---
EXAMINATION: US soft tissue groin LT DATE: 06/24/2023 10:59 INDICATION: Unilateral inguinal hernia, without obstruction. Hernia repair 4 weeks ago. TECHNIQUE: Multiple grayscale and Doppler ultrasound images of the left groin were obtained. COMPARISON: CT pelvis 04/08/2023 FINDINGS: There is a 13.6 x 6.5 x 6.4 cm cystic mass with lattice pattern of hypoechoic material in l eft inguinal region, consistent with a hematoma. IMPRESSION: 1. 13.6 cm hematoma in left inguinal region. Reviewed, dictated and finalized at location A.
== END 2023-06-24 10:30 | disposition home or self-care (01) ==
PROVIDERS: PCP Family Medicine; Visit Provider Surgery
DX: K40.90 Unilateral inguinal hernia, without obstruction or gangrene, not specified as recurrent (principal)
CPT/HCPCS: 76882

== ENCOUNTER 2023-11-12 09:13 | Outpatient (CLI) | payer MEDICARE, SELFPAY ==
--- NOTE | 2023-11-12 09:40 | NEURO_ITS ---
Impression: # Complains of right hand pain. Non-diabetic. # Moderate to severe right Carpal Tunnel Syndrome. # No ulnar neuropathy. # Abnormal Needle/EMG exam with neurogenic changes in APB. Nerve Conduction Studies Anti Sensory Summary Table Stim Site NR Peak (ms) P-T Amp (?V) Site1 Site2 Delta-P (ms) Dist (cm) Tab (m/s) Right Median Anti Sensory (2-3nd Digit) Wrist 4.1 11.2 Wrist 2-3nd Digit 4.1 14.0 34 Wrist 4.3 11.7 Wrist 2-3nd Digit 4.1 14.0 34 Right Radial Anti Sensory (Base 1st Digit) Wrist 2.5 4.5 Wrist Base 1st Digit 2.5 0.0 Right Ulnar Anti Sensory (5th Digit) Wrist 2.7 42.1 Wrist 5th Digit 2.7 14.0 52 Motor Summary Table Stim Site NR Onset (ms) O-P Amp (mV) Site1 Site2 Delta-0 (ms) Dist (cm) Tab (m/s) Right Median Motor (Abd Poll Brev) Wrist 5.2 1.0 Elbow Wrist 6.6 31.0 47 Elbow 11.8 0.8 Right Ulnar Motor (Abd Dig Minimi) Wrist 2.7 8.5 A Elbow Wrist 6.1 33.0 54 A Elbow 8.8 6.6 F Wave Studies NR F-Lat (ms) L-R F-Lat (ms) Right Median (Mrkrs) (Abd Poll Brev) 34.56 Right Ulnar (Mrkrs) (Abd Dig Min) 33.06 EMG Side Muscle Nerve Root Ins Act Fibs Amp Dur Recrt Comment Right 1stDorInt Ulnar C8-T1 Nml Nml Nml Nml Nml Right Ext Indicis Radial (Post Int) C7-8 Nml Nml Nml Nml Nml Right Ext Digitorum Radial (Post Int) C7-8 Nml Nml Nml Nml Nml Right BrachioRad Radial C5-6 Nml Nml Nml Nml Nml Right PronatorTeres Median C6-7 Nml Nml Nml Nml Nml Right Abd Poll Brev Median C8-T1 Nml Nml Nml >12ms +2 Right ABD Dig Min Ulnar C8-T1 Nml Nml Nml Nml Nml MTDD
== END 2023-11-12 09:14 | disposition home or self-care (01) ==
LOC: ANHNEURO 09:14
PROVIDERS: PCP Physician Assistant Medical; Visit Provider Physician Assistant Medical
DX: G56.01 Carpal tunnel syndrome, right upper limb (principal); R94.131 Abnormal electromyogram [EMG]
CPT/HCPCS: 95886; 95909

== ENCOUNTER 2023-12-04 10:08 | Outpatient (CLI) | payer MEDICARE, SELFPAY ==
--- NOTE | ~2023-12-04 | XR_ITS ---
XR hand RT min 3V Ordering provider: Sebastian Joshi MD History: . M79.641 - Pain in right hand INTERMITTANT CARPAL TUNNEL MOS . Comparison: None. FINDINGS: BONES: No acute fracture or dislocation. JOINT SPACES: Narrowing of the distal interphalangeal joint of the little finger. Cystic changes seen in the distal ulna and in the distal scaphoid suggestive of osteoarthritic changes. SOFT TISSUES: Normal. IMPRESSION: No acute osseous abnormality right hand. Reviewed, dictated and finalized at location A.
== END 2023-12-04 10:09 | disposition home or self-care (01) ==
LOC: ANHIMG 10:10
PROVIDERS: PCP Physician Assistant Medical; Visit Provider Orthopaedic Surgery
DX: M79.641 Pain in right hand (principal)
CPT/HCPCS: 73130

== ENCOUNTER 2024-01-01 08:21 | Outpatient (CLI) | payer MEDICARE, SELFPAY ==
[2024-01-01 08:59] LABS: Anion Gap 6 mmol/L (4-12); Blood Urea Nitrogen 17 mg/dL (9-20); Calcium 9.2 mg/dL (8.4-10.2); Carbon Dioxide 31 mmol/L (22-30); Chloride 101 mmol/L (98-107); Estimated Glomerular Filt Rate > 60; Glucose 110 mg/dL (65-110); Sodium 138 mmol/L (137-145)
== END 2024-01-01 08:22 | disposition home or self-care (01) ==
LOC: ANHSURGERY 08:24
PROVIDERS: Anesthesiology; PCP Physician Assistant Medical; Visit Provider Orthopaedic Surgery
DX: Z51.81 Encounter for therapeutic drug level monitoring (principal); Z79.899 Other long term (current) drug therapy; Z01.818 Encounter for other preprocedural examination
CPT/HCPCS: 36415; 80048

== ENCOUNTER 2024-01-06 00:09 | Day surgery (SDC) | payer MEDICARE, SELFPAY ==
[2023-12-26 13:16] VITALS: BMI 31.8
--- NOTE | 2023-12-26 13:44 | PC.NURSE ---
Report to the Outpatient Waiting Room, entrance under the green pavilion located off [facility], at time __12:30PM on date ___01/06/24____. Planned Procedure Time: ___2:30PM .? Time changes happen often and if your time is changed the preop area will call you the afternoon before. - You and your visitor will be asked to self-screen and do not enter if you have any COVID symptoms. Please call surgeon if you need to reschedule. - A mask is optional within the hospital at this time. Patients may have clear liquids (water, carbonated beverages, clear teas, apple juice) until 3 hours prior to surgery with a maximum of 20 ounces. - No food from midnight until time of surgery and no smoking. Take only the following medications with a SIP of water on the morning of surgery: ____BREZTRI INHALER, AMLODIPINE, METOPROLOL DO NOT STOP ANY OF YOUR OTHER PRESCRIPTION MEDICATIONS PRIOR TO SURGERY EXCEPT THE FOLLOWING Medications to discontinue per physician ____HOLD ASPIRIN & CILOSTAZOL PER DR GRADY. PATIENT IS CALLING OFFICE TO CONFIRM TIME FRAME. HOLD IBUPROFEN 7 DAYS PRE-OP PER DR GRADY- LAST DOSE 12/29/23 HOLD ALL VITAMINS/SUPPLEMENTS 3 DAYS PRE-OP PER ANESTHESIA- LAST DOSE 01/02/24 Please no make-up, nail occitan, hairspray, perfume, deodorant, or body powder the day of surgery.? No jewelry (including any body piercings) or valuables the day of surgery, leave them at home.? Please take a shower or bath the night before, or the morning of, surgery with an antibacterial soap.? Wear comfortable, loose fitting clothing.? - Jewelry must be removed prior to entering the operating room.? Rings and piercings that are not removed may be cut off. - The hospital will not accept responsibility for valuables.? - Please leave all valuables, including medications, at home the day of surgery. If you are going home after surgery, a licensed laundry route driver must drive you home.? - NO public transportation without another adult if you receive anesthesia. - We recommend that an adult stay with you for 24 hours following discharge. - We also recommend that you do not drive, make important decision, drink alcoholic beverages, or take any drugs that were not prescribed by your health care provider for at least 24 hours after your discharge time. Follow any additional instructions given to you from your surgeon. Telephone instructions given to ____PATIENT and asked if any additional questions and then verbalized understanding. Patient advised to call surgeon office or pre surgery nurse liaison [phone] if any additional questions.
[2024-01-06 13:11] VITALS: BMI 31.9
[2024-01-06 13:14] VITALS: BP 132/81; PULSE 115; RESP 22; TEMP 36.7; O2SAT 97
[2024-01-06] MEDS: ACETAMINOPHEN 500 MG TABLET 1000 MG PO (13:26)
[2024-01-06] MEDS: KETOROLAC 15 MG/ML VIAL (*BKC) IV PUSH (13:26)
[2024-01-06] MEDS: LACTATED RINGERS 1,000 ML 30 ML IV CONT (13:26)
--- NOTE | 2024-01-06 13:38 | WPDANESEPPF ---
Anes - Initial Pre Proc Eval Procedure: Operation Date: 01/06/24 14:30 Proposed Procedures p Right Carpal Tunnel Release - Sebastian Joshi MD Date/Time: 01/06/24 13:38 Surgeon: Sebastian Joshi MD Pre Op Diagnosis: Right Carpal Tunnel Syndrome Patient Data Age: 73 Gender: M Height: 1.75 m Weight: 98.2 kg Last Vital Signs Temp 98.1 F 01/06/24 13:14 Pulse 115 H 01/06/24 13:14 Resp 22 H 01/06/24 13:14 BP 132/81 01/06/24 13:14 Pulse Ox 97 01/06/24 13:14 Allergies Allergy/AdvReac Type Severity Reaction Status Date / Time No Known Allergies Allergy Mild Verified 01/06/24 12:47 Home Medications Medication Instructions Recorded Confirmed Type multivitamin with minerals-folic 0.4 mg PO QAM 10/28/19 12/26/23 History acid 0.4 mg tablet (Daily Multiple For Men) magnesium 250 mg tablet 250 mg PO DAILY 03/26/23 12/26/23 History aspirin 81 mg tablet 81 mg PO DAILY 09/25/23 12/26/23 History budesonide 160 mcg-glycopyr 9 2 inh inhalation BID 09/25/23 12/26/23 History mcg-formot 4.8 mcg/actuation HFA inhaler (Breztri Aerosphere) atorvastatin 20 mg tablet 20 mg PO QHS #90 tabs 10/25/23 12/26/23 Rx amlodipine 5 mg tablet 5 mg PO QAM #90 tabs 11/08/23 12/26/23 Rx methotrexate sodium 2.5 mg tablet 7.5 mg PO WEEKLY #12 tabs 11/14/23 12/26/23 Rx cyclobenzaprine 10 mg tablet 10 mg PO BID #60 tabs 11/25/23 12/26/23 Rx cilostazol 50 mg tablet 50 mg PO BID #180 tabs 12/02/23 12/26/23 Rx chlorthalidone 25 mg tablet 25 mg PO QAM 12/26/23 12/26/23 History ibuprofen 800 mg tablet 800 mg PO Q6H PRN Pain 12/26/23 12/26/23 History metoprolol succinate 50 mg 100 mg PO BID 12/26/23 12/26/23 History tablet,extended release 24 hr celecoxib 200 mg capsule 200 mg PO DAILY #90 caps 01/06/24 Rx hydrocodone 5 mg-acetaminophen 325 1 - 2 tablet PO Q4-6H PRN pain 7 01/06/24 Rx mg tablet days #30 tabs Patient hx anesthesia problems: none Family hx anesthesia problems: none Results Review: All pre-operative results and documents have been reviewed as part of the pre-operative evaluation. [facility] Past Medical History Medical History Claudication COPD (chronic obstructive pulmonary disease) History of kidney stones History of tachycardia high baseline HR - 90-115, controlled with metoprolol History of ulcer disease Hyperlipidemia Hypertension Osteoarthritis Restless leg syndrome Squamous cell cancer of skin of forearm Tobacco abuse Surgical History Surgical History H/O nephrolithotomy with removal of calculi History of excision of lesion 09/29/20 Excision 2.5 cm pigmented nevus right ankle with 1 mm margins, 2.7 cm excision. 9 cm layered closure. Hx of inguinal hernia repair Robotic laparoscopic repair bilateral inguinal hernias with mesh 05/23/23 Family History Family History Father , age 80 Acute myocardial infarction Malignant neoplasm of prostate Diabetes mellitus Kidney disease Mother , age 93 Acute myocardial infarction Heart disease Hypertension Sibling , age 62 Acute myocardial infarction Breast cancer Malignant neoplasm of prostate Heart disease Social History Social History Smoking packs per day: 1 Smoking cigarettes per day: 20.0 Years smoked: 50 Smoking pack-years: 50.00 Smoking status: Current every day smoker Tobacco type: cigarettes Second hand tobacco smoke exposure: Yes Alcohol intake: current Alcohol use details: VERY RARELY - COUPLE TIMES A YEAR Substance use: never Substance use type: does not use Do You Feel Safe in your Home?: Yes Lack of Transportation: No Lack of Food: Never True Current Housing: I Have Housing Concerned About Future Housing: No Difficulty Paying Gas/Electric Bills: No Difficulty Paying for Meds: No Currently Unemployed: No Education: Bachelor's Degree Difficulty w/ Childcare or Family Care: No Living arrangements: alone Occupation/Education: retired Gender identity (if verbalized by the patient): Male Spiritual care concerns: No Anes - Eval Final PreProcedure Day of Procedure 01/06/24 13:38 Patient weight: obese Heart: regular rate and rhythm Lungs: clear to auscultation Airway: Mallampati scale class II Neurological: alert and oriented Last oral intake: >/= 8 hours ASA classification: II Emergent: no Anesthetic plan: proceed Anesthesia type and monitoring: general GIVS and standard monitoring Results Review: All pre-operative results and documents have been reviewed as part of the pre-operative evaluation. Active smoker, 1 ppd, smoked at 1030 am. HTN, persistent resting tachycardia, workup neg per pt, on b jaiden twice daily. Pt can walk 1-2 fos no cp, mild dyspnea w second flight. Informed Consent: The patient's anesthetic plan and its attendant risks and benefits were discussed with the patient/family/POA. Questions were solicited and answers provided to the satisfaction of the patient/family/POA.
--- NOTE | 2024-01-06 14:03 | WPDHPUPDATE1 ---
History and Physical Update Update Date/Time: 01/06/24 14:03 History and Physical has been reviewed, including an updated exam of the patient. There are NO changes in the patient's condition. Risks, benefits, and alternatives have been discussed and questions answered. Patient agrees to proceed with procedure.
[2024-01-06] MEDS: BUPIVACAINE/EPINEPHRINE 0.5% 50 ML VIAL 20 ML INFILTRATE (14:34)
[2024-01-06 15:00] VITALS: BP 115/75; PULSE 100; RESP 16; O2SAT 97
[2024-01-06 15:30] VITALS: BP 118/74; PULSE 100; RESP 14
--- NOTE | 2024-01-07 13:00 | W.PM.PROC2 ---
Procedure Note - Detailed Date of Procedure 01/06/24 Pre-op Diagnosis Right Carpal Tunnel Syndrome Post-op Diagnosis Same Procedure Performed Right carpal tunnel release Surgeon Sebastian Joshi MD [employer] Attendant Lynn Martinez PA-C Anesthesia General Description of Procedure General anesthesia administered. The hand was prepped and draped in the usual sterile fashion. The proposed incision was marked using typical anatomic landmarks. 4ML 0.5% Marcaine with epinephrine was injected along the incision line and at the distal forearm. The limb was exsanguinated and the tourniquet inflated to 250 millimeters of mercury. A longitudinal incision was taken sharply. Dissection was brought down to the transverse carpal ligament. Under direct vision the ligament was incised sharply. The proximal release was carried out with dissection scissors. The contents of the carpal canal were protected with a [place] elevator. The transverse carpal ligament was confirmed to be widely patent. The wound was closed with interrupted 3-0 Prolene suture. A sterile bulky dressing was placed. Patient was brought to the recovery room in stable condition. Estimated Blood Loss 1 Pathology None sent Complications No immediate complications Condition Stable Disposition PACU [facility] Billing Surgery - Charge Forward: Surgery Billing
== END 2024-01-06 15:56 | disposition home or self-care (01) ==
PROVIDERS: PCP Physician Assistant Medical; Visit Provider Orthopaedic Surgery
PROC: (CPT 64721; principal; 2024-01-06 14:30)
DX: G56.01 Carpal tunnel syndrome, right upper limb (principal); E78.5 Hyperlipidemia, unspecified; I10 Essential (primary) hypertension; J44.9 Chronic obstructive pulmonary disease, unspecified; M19.90 Unspecified osteoarthritis, unspecified site; G25.81 Restless legs syndrome; F17.210 Nicotine dependence, cigarettes, uncomplicated; E66.9 Obesity, unspecified; Z68.32 Body mass index [BMI] 32.0-32.9, adult; Z79.82 Long term (current) use of aspirin; Z79.51 Long term (current) use of inhaled steroids; Z79.891 Long term (current) use of opiate analgesic; Z79.1 Long term (current) use of non-steroidal anti-inflammatories (NSAID); Z98.890 Other specified postprocedural states; Z87.442 Personal history of urinary calculi; Z87.11 Personal history of peptic ulcer disease; Z85.828 Personal history of other malignant neoplasm of skin; Z86.79 Personal history of other diseases of the circulatory system; Z80.42 Family history of malignant neoplasm of prostate; Z80.3 Family history of malignant neoplasm of breast; Z82.49 Family history of ischemic heart disease and other diseases of the circulatory system
CPT/HCPCS: 64721; A9270; J1885; J2704; J3010; J7120

== ENCOUNTER 2024-05-26 14:24 | Outpatient (CLI) | payer MEDICARE, SELFPAY ==
--- NOTE | ~2024-05-26 | CT_ITS ---
CT Scan of the Chest without Contrast: Clinical Indication: Lung cancer screening, nicotine dependence Technique: Contiguous sections were acquired throughout the chest without intravenous contrast. Dose reduction technique was used on this scan by utilizing automated exposure control and iterative recon struction technique. The dose-length product (DLP) was 218.80 mGy-cm. COMPARISON: 09/25/2022 Findings: There is no evidence of any significant mediastinal, hilar or axillary lymphadenopathy. Coronary calc ifications are present. There is no evidence of pleural or pericardial effusion. 3 mm groundglass nodule present in the right middle lobe (axial image 80). There is mild bibasilar sc arring. Images through the upper abdomen reveal multiple hepatic cysts. Probable low-density right adrenal no dule, compatible with adenoma. Small hiatal hernia. Stable mild compression deformities of T7 and T8 and L2. Impression: Lung RADS 2: Benign appearance. 12 month follow-up screening CT advised. Reviewed, dictated and finalized at location . Impression: Lung RADS 2: Benign appearance. 12 month follow-up screening CT advised.
--- OUTSIDE RECORDS SUMMARY | 2024-05-26 15:34 | XMS_ITS | Clinical Summary ---
Author Organization [facility] Address [address] [place] [address] Care Team Providers Care Denture Waxer Name Role Phone Janay Salas PA-C Primary Care Provider [phone] Wayne Garrison MD Unavailable [phone] Allergies No known active allergies Medications chlorthalidone 25 MG tablet Take 1 tablet (25 mg total) by mouth daily. Active amLODIPine 5 MG tablet Take 1 tablet (5 mg total) by mouth daily. Active atorvastatin (LIPITOR) 20 MG tablet Take 1 tablet (20 mg total) by mouth nightly at bedtime. Active budesonide-gly copyrrolate-fo rmoterol (BREZTRI AEROSPHERE) 160-9-4.8 MCG/ACT inhaler Inhale 2 puffs into the lungs 2 (two) times daily. Active cilostazol (PLETAL) 50 MG tablet Take 1 tablet (50 mg total) by mouth 2 (two) times daily. Active cyclobenzaprin e (FLEXERIL) 10 MG tablet Take 1 tablet (10 mg total) by mouth 2 (two) times a day. Active folic acid (FOLVITE) 1 MG tablet Take 1 tablet (1 mg total) by mouth daily. Active methotrexate (TREXALL) 2.5 MG tablet Take 6 tablets (15 mg total) by mouth once a week. Saturdays Active metoprolol succinate ER (TOPROL-XL) 50 MG 24 hr tablet Take 1 tablet (50 mg total) by mouth 2 (two) times daily. Active multi vitamin/minera ls (THERA-M ENHANCED) tablet Take 1 tablet by mouth daily. Active aspirin EC (ECOTRIN) 81 MG tablet Take 1 tablet (81 mg total) by mouth daily. Active magnesium oxide (MAG-OX) 400 (240 Mg) MG tablet Take 1 tablet (400 mg total) by mouth daily. Active buPROPion XL (WELLBUTRIN XL) 300 MG 24 hr tablet Take 1 tablet (300 mg total) by mouth every morning. Active guaiFENesin ER (MUCINEX) 600 MG 12 hr tabletIndicati ons:Congestion Take 1 tablet (600 mg total) by mouth 2 (two) times daily for 30 days. Indications: Congestion 60 tablet 5 05/08/19 guaiFENesin-co deine (GUAIFENESIN AC) 100-10 MG/5ML syrupIndicatio ns:Cough Take 10 mLs by mouth every 6 (six) hours as needed for Congestion or Cough. Indications: Cough 200 mL 5 05/22/19 Discontinu ed(Error) albuterol sulfate HFA 108 (90 Base) MCG/ACT inhalerIndicat ions:COPD. Inhale 2 puffs into the lungs every 4 (four) hours as needed for Wheezing or Shortness of breath. Indications: COPD. 18 g 5 05/24/19 Discontinu ed(Stop Taking at Discharge) celecoxib (CELEBREX) 200 MG capsule Take 1 capsule (200 mg total) by mouth daily. 05/22/19 Discontinu ed(Error) Active Problems Problem Noted Date Diagnosed Date Septic arthritis ([facility]) 05/20/2024 Pneumonia 04/02/2024 Encounters Date Type Department Care Team Description 05/25/2024 9:25 AM T Hospital Encounter [facility] Cardiac Rehab [address] [place] [address] Dimitry Wilcox DO Arrived 05/25/2024 Travel 05/20/2024 12:12 PM CDT - 05/23/2024 11:54 AM T Hospital Encounter [facility] [address] [place] [address] Imelda Ribeiro MD McGowen, Payton K, MD Suresh, Aditya John, MD Leg Pain Discharge Disposition: Home or Self Care (Routine Discharge) 05/20/2024 Travel 05/19/2024 9:29 AM CDT - 05/19/2024 11:59 PM CDT Hospital Encounter [facility] Cardiac Rehab [address] [place] [address] Dimitry Wilcox, DO Discharge Disposition: Home or Self Care (Routine Discharge) 05/19/2024 Travel 05/12/2024 7:47 AM CDT - 05/12/2024 11:59 PM CDT Hospital Encounter [facility] Cardiac Rehab [id number] [place] [address] Dimitry Wilcox, DO Discharge Disposition: Home or Self Care (Routine Discharge) 05/12/2024 Travel 04/30/2024 Transcribe Orders [facility] Pre Access Team [address] [place] [address] Janay Salas, LAQUITA-C 04/10/2024 Hospital Follow-up Call [facility] Care Management [address] [place] [id number] Mercedez Beverly LPN Follow Up Call (SJB 04/02-04/07/24) 04/08/2024 12:00 PM ROLL FORMING SUPERVISOR Home Care Visit [facility] Care [address] [place] [address] [place] [address] Gabi Reynoso RN SN NON ADMIT SOC 04/02/2024 1:38 AM ROLL FORMING SUPERVISOR - 04/07/2024 3:40 PM ROLL FORMING SUPERVISOR Hospital Encounter [facility] Medical/Surgical [address] [place] [address] Beti Velasquez MD Engele, Christopher, APRN Poettker, Amber L, PAAnicetoC Juan Sinclair MD Discharge Disposition: Home with Home Health Care 04/01/2024 8:48 PM ROLL FORMING SUPERVISOR - 04/02/2024 1:00 AM ROLL FORMING SUPERVISOR Emergency [facility] Emergency Room [address] [place] [address] Siddhartha Cee MD Flu Like Symptoms Discharge Disposition: Transfer to Acute Care Hospital 04/01/2024 Travel from Last 3 Months Family History Medical History Relation Comments Heart Disease Brother Diabetes Father Hypertension Father Prostate Cancer Father Colon Cancer Maternal Grandmother Hypertension Mother Colon Cancer Paternal Grandmother Relation Status Comments Brother Father Maternal Grandmother Mother Paternal Grandmother Social History Tobacco Use Types Packs/Day Years Used Date Smoking Tobacco: Former Cigarettes 1 54.1 1 971 - 04/01/2024 Smokeless Tobacco: Never Tobacco Cessation:Counseling Given: Not Answered Alcohol Use Standard Drinks/Week Comments Never 0 (1 standard drink = 0.6 oz pur e alcohol) B1300 Health Literacy Answer Date Recor ded How often do you need to hav e someone help you when you read instructions, pamphlets, or other written material from your doctor or pharmacy? Never 05/20/2024 [facility] Utilities Answer Date Recorded In the past 12 months has [facility] [employer], or water [employer] threatened to shut off services in your home? No 05/20/2024 Humiliation, Afraid, Rape, and Kick questionnair e Answer Date Recorded Within the last year, have y ou been afraid of your partner or ex-partner? No 05/20/2024 Within the last year, have y ou been humiliated or emotionally abused in other ways by your partner or ex-partner? No Within the last year, have y ou been kicked, hit, slapped, or otherwise physically hurt by your partner or ex-partner? No 05/20/2024 Within the last year, have y ou been raped or forced to have any kind of sexual activity by your partner or ex-partner? No 05/20/2024 Social Connection and Isolat ion Panel [NHANES] Answer Date Recorded In a typical week, how many times do you talk on the phone with family, friends, or neighbors? More than three times a week 05/20/2024 How often do you get togethe r with friends or relatives? More than three times a week 05/20/2024 How often do you attend [facility] or religion services? Never 05/20/2024 Do you belong to any clubs o r organizations such as evangelical groups, unions, fraternal or athletic groups, or school groups? No 05/20/2024 How often do you attend meet ings of the clubs or organizations you belong to? Never 05/20/2024 Are you , , di vorced, , never , or living with a partner? Never 05/20/2024 AUDIT-C Answer Date Recorded Q1: How often do you have a drink containing alcohol? Never 05/20/2024 Q2: How many drinks containi ng alcohol do you have on a typical day when you are drinking? Patient does not drink Q3: How often do you have si x or more drinks on one occasion? Never 05/20/2024 Overall Financial Resource Strain (CARDIA) Answe r Date Recorded How hard is it for you to pa y for the very basics like food, housing, medical care, and heating? Not hard at all 05/20/2024 PHQ-2 Answer Date Recorded Patient Health Questionnaire-2 Score 1 05/20/2024 [facility] - Occupational Stress Questionnaire Answer Date Recorded Do you feel stress - tense, restless, nervous, or anxious, or unable to sleep at night because your mind is troubled all the time - these days? To some extent 05/20/2024 Exercise Vital Sign Answer Date Recorde d On average, how many days pe r week do you engage in moderate to strenuous exercise (like a brisk walk)? 0 days 05/20/2024 On average, how many minutes do you engage in exercise at this level? 0 min 05/20/2024 Hunger Vital Sign Answer Date Recorded Within the past 12 months, y ou worried that your food would run out before you got the money to buy more. Never true 05/21/19 25 Within the past 12 months, t he food you bought just didn't last and you didn't have money to get more. Never true 05/20/2024 PRAPARE - Transportation Answer Date Re corded In the past 12 months, has l ack of transportation kept you from medical appointments or from getting medications? No 10/2024 In the past 12 months, has l ack of transportation kept you from meetings, work, or from getting things needed for daily living? No 05/20/2024 Housing Stability Vital Sign Answer Jorden e Recorded In the last 12 months, was t here a time when you were not able to pay the mortgage or rent on time? No 05/20/2024 In the past 12 months, how m any times have you moved where you were living? 0 05/20/2024 At any time in the past 12 m [facility], were you homeless or living in a fdc (including now)? No 05/20/2024 Sex and Gender Information Value Date Recorded Sex Assigned at Male 04/01/2024 8:47 PM ROLL FORMING SUPERVISOR Legal Sex Male 8:23 PM CDT Gender Identity Male 05/20/2024 5:36 PM CDT Sexual Orientation Straight 05/20/2024 5: 36 PM CDT Last Filed Vital Signs Vital Sign Reading Time Taken Comments Blood Pressure 121/76 05/23/2024 7:29 AM CDT Pulse 103 05/23/2024 7:29 AM CDT RN notified Temperature 36.2 C (97.2 F) 05/23/2024 7:29 AM CDT Respiratory Rate 18 05/23/2024 7:29 AM CDT Oxygen Saturation 95% 05/23/2024 7:2 9 AM CDT Inhaled Oxygen Concentration - - Weight 96.8 kg (213 lb 6.5 oz) 05/23/19 25 4:29 AM CDT Height 175.3 cm (5' 9 ) 05/20/2024 4:00 PM CDT Body Mass Index 31.51 05/20/2024 4:00 PM CDT Plan of Treatment Upcoming Encounters Date Type Department Care Team (Late st Contact Info) Description 05/28/2024 9:30 AM CDT Hospital Encounter [facility] [address] [place] [address] Dimitry Wilcox, DO [address] [address] 06/01/2024 9:30 AM CDT Appointment [facility] Card[facility]hab [address] [place] [address] Dimitry Wilcox, DO [address] [place] [address] 06/02/2024 9:30 AM CDT Appointment [facility] [address] [place] [address] Dimitry Wilcox, DO [address] [place] [address] 06/04/2024 9:30 AM CDT Appointment [facility] [address] [place] [address] Dimitry Wilcox, DO [address] [place] [address] 06/08/2024 9:30 AM CDT Appointment [facility] [address] [place] [address] Dimitry Wilcox, DO [address] [address] 06/09/2024 9:30 AM CDT Appointment [facility] [address] [place] [address] Dimitry Wilcox, DO [address] [place] [address] 06/11/2024 9:30 AM CDT Appointment [facility] [address] [place] [address] Dimitry Wilcox, DO [address] [place] [address] [place] [address] 06/15/2024 9:30 AM CDT Appointment [facility] [address] [place] [address] Dimitry Wilcox, DO [address] [place] [address] 06/16/2024 9:30 AM CDT Appointment [facility] [address] [place] [address] Dimitry Wilcox, DO [address] [place] [address] 06/18/2024 9:30 AM CDT Appointment [facility] [address] [place] [address] Dimitry Wilcox, DO [address] [place] [address] [place] [address] 06/22/2024 9:30 AM CDT Appointment [facility] [address] [place] [address] Dimitry Wilcox, DO [address] [place] [address] [place] [address] 06/23/2024 9:30 AM CDT Appointment [facility] [address] [place] [address] Dimitry Wilcox, DO [address] [place] [address] [place] [address] 06/25/2024 9:30 AM CDT Appointment [facility] [address] [place] [address] Dimitry Wilcox, DO [address] [place] [address] [place] [address] 06/29/2024 9:30 AM CDT Appointment [facility] [address] [place] [address] Dimitry Wilcox, DO [address] [place] [address] 06/30/2024 9:30 AM CDT Appointment [facility] [address] [place] [address] Dimitry Wilcox, DO [address] [place] [address] 07/02/2024 9:30 AM CDT Appointment [facility] [address] [place] [address] Dimitry Wilcox, DO [address] [place] [address] 07/07/2024 8:00 AM CDT Appointment [facility] [address] [place] [address] Janay Salas PA-C [address] [place], [place] [address] [place] [address] 07/07/2024 9:30 AM CDT Appointment [facility] [address] [place] [address] Dimitry Wilcox, DO [address] [place] [address] 07/09/2024 9:30 AM CDT Appointment [facility] [address] [place] [address] Dimitry Wilcox, DO [address] [place] [address] 07/13/2024 9:30 AM CDT Appointment [facility] [address] [place] [address] Dimitry Wilcox, DO [address] [place] [address] [place] [address] 07/14/2024 9:30 AM CDT Appointment [facility] [address] [place] [address] Dimitry Wilcox, DO [address] [place] [address] [place] [address] 07/16/2024 9:30 AM CDT Appointment [facility] [address] [place] [address] Dimitry Wilcox, DO [address] [place] [address] [place] [address] 07/20/2024 9:30 AM CDT Appointment [facility] [address] [place] [address] Dimitry Wilcox, DO [address] [address] 07/21/2024 9:30 AM CDT Appointment [facility] [address] [place] [address] Dimitry Wilcox, DO [address] [address] 07/23/2024 9:30 AM CDT Appointment [facility] [address] [place] [address] Dimitry Wilcox, DO [address] [place] [address] 07/27/2024 9:30 AM CDT Appointment [facility] [address] [place] [address] Dimitry Wilcox, DO [address] [place] [address] 07/28/2024 9:30 AM CDT Appointment [facility] [address] [place] [address] Dimitry Wilcox, DO [address] [place] [address] 2024 9:30 AM CDT Appointment [facility] [address] [place] [address] Dimitry Wilcox, DO [address] [place] [address] [place] [address] 08/03/2024 9:30 AM CDT Appointment [facility] [address] [place] [address] Dimitry Wilcox, DO [address] [place] [address] 08/04/2024 9:30 AM CDT Appointment [facility] [address] [place] [address] Dimitry Wilcox, DO [address] [place] [address] 08/06/2024 9:30 AM CDT Appointment [facility] [address] [place] [address] Dimitry Wilcox, DO [address] [address] 10/07/2024 8:40 AM CDT Office Visit [facility] Multispecialty Care - [facility] [address] [place] [id number] Mahesh Tran DO [address] [facility] [address] [place] [address] Health Maintenance Due Date Last Done Comments Colorectal Cancer Screening Colonoscopy (10 Years) 1950 Hepatitis C 1968 DTaP, Tdap and Td Vaccines ( 1 - Tdap) 1969 Pneumococcal Vaccine: 50+ Years (1 of 2 - PCV) 1969 Lung Cancer Screening 2000 Zoster Vaccines (1 of 2) 2000 RSV Immunization or 60+ Years (1 - Risk 60-74 years 1-dose series) 2010 Annual Medicare Wellness Visit 07/31/2015 COVID-19 Vaccine (3 - 2023-2 5 season) 2023 05/04/2020, 04/12/2020 AAA SCREENING Completed 05/20/2024, 10/23/2019 Meningococcal B Vaccine Aged Out No l onger eligible based on patient's age to complete this topic Meningococcal Vaccine Aged Out No kris hector eligible based on patient's age to complete this topic RSV Immunizations Under 20 Months Aged Out No longer eligible b ased on patient's age to complete this topic Goals Goal Patient Goal Type Associated Problems Recent Progress Patient-Stated? 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 Procedure Name Priority Date/Time Associated Diagnosis Comments MAGNESIUM Routine 05/23/2024 6:25 AM CDT CBC W/DIFF AUTOMATED Routine 05/23/2024 6:25 AM CDT BASIC METABOLIC PANEL Routine 05/23/2024 6:25 AM CDT CBC W/DIFF AUTOMATED Routine 05/22/2024 6:04 AM CDT BASIC METABOLIC PANEL Routine 05/22/2024 6:04 AM CDT MAGNESIUM Routine 05/22/2024 6:04 AM CDT VANCOMYCIN TIMED 05/22/2024 6:04 AM CDT MRI KNEE RT WO CON Today 05/21/2024 5: 00 PM CDT URIC ACID BLOOD Routine 05/21/2024 5:29 AM CDT C-REACTIVE PROTEIN Routine 05/21/2024 5: 29 AM CDT SED RATE, ERYTHROCYTE (ESR) Routine 05/21/2024 5:29 AM CDT MAGNESIUM Routine 05/21/2024 5:29 AM CDT BASIC METABOLIC PANEL Routine 05/21/2024 5:29 AM CDT CBC W/DIFF AUTOMATED Routine 05/21/2024 5:29 AM CDT JOINT ASPIRATION/INJECTION Routine 05/20/2024 3:33 PM CDT HC SMEAR GRAM/GIEMSA STAT 05/20/2024 3:00 PM CDT HC GLUCOSE BODY FLUID STAT 05/20/2024 3:00 PM CDT CRYSTALS, BODY FLUID STAT 05/20/2024 3:00 PM CDT CELL COUNT W/ DIFF BODY FLUID STAT 05/20/2024 3:00 PM CDT CULTURE, BACTERIA, BLOOD STAT 05/20/2024 1:[address] ABD+PEL WWO CON STAT 05/20/2024 1: [address] KNEE RT WO CON STAT 05/20/2024 1:2 7 PM CDT USV JENNIE DUPLEX LOW EXT RT STAT 05/20/2024 1:07 PM CDT XR CHEST PORTABLE STAT 05/20/2024 12: 50 PM CDT ECG 12-LEAD Routine 05/20/2024 12:36 PM CDT CULTURE, BACTERIA, BLOOD STAT 05/20/2024 12:20 PM CDT C-REACTIVE PROTEIN STAT 05/20/2024 12 :20 PM CDT MAGNESIUM STAT 05/20/2024 12:20 PM CDT PRO-BRAIN NATRIURETIC PEPTIDE STAT 05/20/2024 12:20 PM CDT LACTIC ACID W REFLEX (SEPSIS) STAT 05/20/2024 12:20 PM CDT LIPASE STAT 05/20/2024 12:20 PM CDT CK (CPK) STAT 05/20/2024 12:20 PM CDT TROPONIN, QUANT STAT 05/20/2024 12:20 PM CDT COMPREHENSIVE METABOLIC PANEL STAT 05/20/2024 12:20 PM CDT SED RATE, ERYTHROCYTE (ESR) STAT 05/20/2024 12:20 PM CDT PARTIAL THROMBOPLASTIN TIME,PTT STAT 05/20/2024 12:20 PM CDT PROTHROMBIN TIME, VENOUS STAT 05/20/2024 12:20 PM CDT CBC W/DIFF AUTOMATED STAT 05/20/2024 12:20 PM CDT COMPREHENSIVE METABOLIC PANEL Routine 04/07/2024 4:44 AM ROLL FORMING SUPERVISOR CBC W/DIFF AUTOMATED Routine 04/07/2024 4:43 AM ROLL FORMING SUPERVISOR HOME O2 EVAL Routine 04/06/2024 11:23 AM ROLL FORMING SUPERVISOR COMPREHENSIVE METABOLIC PANEL Routine 04/06/2024 4:05 AM ROLL FORMING SUPERVISOR CBC W/DIFF AUTOMATED Routine 04/06/2024 4:05 AM ROLL FORMING SUPERVISOR PROCALCITONIN (PCT) Routine 04/06/2024 4 :05 AM ROLL FORMING SUPERVISOR MAGNESIUM Routine 04/05/2024 6:10 AM ROLL FORMING SUPERVISOR COMPREHENSIVE METABOLIC PANEL Routine 04/05/2024 6:10 AM ROLL FORMING SUPERVISOR CBC W/DIFF AUTOMATED Routine 04/05/2024 6:10 AM ROLL FORMING SUPERVISOR PROCALCITONIN (PCT) Routine 04/05/2024 6 :10 AM ROLL FORMING SUPERVISOR COMPREHENSIVE METABOLIC PANEL Routine 04/04/2024 5:10 AM ROLL FORMING SUPERVISOR CBC, AUTO, NO DIFF Routine 04/04/2024 5: 10 AM ROLL FORMING SUPERVISOR PROCALCITONIN (PCT) Routine 04/04/2024 5 :10 AM ROLL FORMING SUPERVISOR CTA CHEST PE PROTOCOL MARIELA 04/03/2024 3:11 PM ROLL FORMING SUPERVISOR PROCALCITONIN (PCT) Routine 04/03/2024 4 :06 AM ROLL FORMING SUPERVISOR MAGNESIUM Routine 04/03/2024 4:06 AM ROLL FORMING SUPERVISOR BASIC METABOLIC PANEL Routine 04/03/2024 4:06 AM ROLL FORMING SUPERVISOR CBC W/DIFF AUTOMATED Routine 04/03/2024 4:06 AM ROLL FORMING SUPERVISOR PROCALCITONIN (PCT) Routine 04/02/2024 9 :46 AM ROLL FORMING SUPERVISOR LACTIC ACID W REFLEX (SEPSIS) STAT 04/01/2024 11:45 PM ROLL FORMING SUPERVISOR CTA CHEST PE PROTOCOL STAT 04/01/2024 10:46 PM ROLL FORMING SUPERVISOR XR CHEST PORTABLE STAT 04/01/2024 9:3 3 PM ROLL FORMING SUPERVISOR INFLUENZA A & B STAT 04/01/2024 9:15 PM ROLL FORMING SUPERVISOR CORONAVIRUS (COVID 19) STAT 9:15 PM ROLL FORMING SUPERVISOR D-DIMER, QUANTITATIVE STAT 04/01/2024 9:15 PM ROLL FORMING SUPERVISOR PRO-BRAIN NATRIURETIC PEPTIDE STAT 04/01/2024 9:15 PM ROLL FORMING SUPERVISOR TROPONIN, QUANT STAT 04/01/2024 9:15 PM ROLL FORMING SUPERVISOR COMPREHENSIVE METABOLIC PANEL STAT 04/01/2024 9:15 PM ROLL FORMING SUPERVISOR CBC W/DIFF AUTOMATED STAT 04/01/2024 9:15 PM ROLL FORMING SUPERVISOR ECG 12-LEAD Routine 04/01/2024 8:59 PM ROLL FORMING SUPERVISOR from Last 3 Months Results * (ABNORMAL) BASIC METABOLIC PANEL (05/23/2024 6:25 AM CDT) Only the most recent of4 resultswithin the time period is included. GLUCOSE 108(H) 70 - 99 MG/DL 05/23/2024 7:25 AM CDT [facility] BUN 13 7 - 18 MG/DL 05/23/2024 7:25 AM T [facility] CREATININE S/P/B 0.95 0.7 - 1.3 MG/DL 05/23/2024 7:25 AM CDT [facility] SODIUM S/P/B 140 136 - 145 MMOL/L 05/23/2024 7:25 AM T [facility] POTASSIUM S/P/B 4.2 3.5 - 5.1 MMOL/L 05/23/2024 7:25 AM T [facility] CHLORIDE S/P/B 104 100 - 108 MMOL/L 05/23/2024 7:25 AM T [facility] CO2 30.3 21 - 32 MMOL/L 05/23/2024 7:25 AM T [facility] CALCIUM S/P/B 9.3 8.5 - 10.1 MG/DL 05/23/2024 7:25 AM T [facility] ANION GAP 5.7 5 - 15 MMOL/L 05/23/2024 7:25 AM [facility] BUN CREATININE RATIO 13.7 6 - 26 05/23/2024 7:25 AM [facility] GFR ESTIMATE 85(L) >90 ML/MIN/1.7 3 M2 05/23/2024 7:25 AM T [facility] Comment: NOTE: eGFR is not calculated for patients <18 years of age. This is an estimated GFR calculation using the new CKD EPI creatinine equation without race and so does not require a correction factor for race. This estimated GFR should not be used for calculating drug doses. 05/23/2024 6:25 AM CDT us Beti Velasquez MD LABORATORY Final Result [facility] [id number] [facility] [address], [place] [phone] * (ABNORMAL) CBC W/DIFF AUTOMATED (05/23/2024 6:25 AM CDT) Only the most recent of9 resultswithin the time period is included. [facility] WBC 10.43 4.4 - 11.0 x10'3/uL 05/23/2024 7:15 AM CDT [facility] RBC 4.16(L) 4.50 - 5.90 x10'6/uL 05/23/2024 7:15 AM CDT [facility] HGB 13.1(L) 14.0 - 17.5 G/DL 05/23/2024 7:15 AM CDT [facility] HCT 39.8(L) 41.5 - 50.4 % 05/23/2024 7:15 AM CDT [facility] MCV 95.7 80.0 - 96.0 FL 05/23/2024 7:15 AM CDT [facility] MCH 31.5(H) 26.5 - 31.4 PG 05/23/2024 7:15 AM CDT [facility] MCHC 32.9 31.9 - 34.8 G/DL 05/23/2024 7:15 AM CDT [facility] RDW 14.0 12.3 - 14.3 % 05/23/2024 7:15 AM CDT [facility] PLT 378(H) 151 - 353 x10'3/uL 05/23/2024 7:15 AM CDT [facility] MPV 9.4(L) 9.7 - 11.9 FL 05/23/2024 7:15 AM CDT [facility] RBC MORPHOLOGY NORMAL 05/23/2024 7:15 AM CDT [facility] PLT MORPH. NORMAL 05/23/2024 7:15 AM CDT [facility] WBC MORPHOLOGY NORMAL 05/23/2024 7:15 AM CDT [facility] LYMPHOCYTES % 9.5(L) 15.8 - 45.0 % 05/23/2024 7:15 AM CDT [facility] NEUTROPHILS % 80.1(H) 42.1 - 71.9 % 05/23/2024 7:15 AM CDT [facility] MONOCYTES % 8.1 5.7 - 12.5 % 05/23/2024 7:15 AM CDT [facility] EOSINOPHILS 1.3 0.0 - 5.6 % 05/23/2024 7:15 AM CDT [facility] BASOPHILS 0.3 0.0 - 1.3 % 05/23/2024 7:15 AM CDT [facility] ABS. NEUTROPHILS 8.36(H) 1.40 - 6.00 x10'3/uL 05/23/2024 7:15 AM CDT [facility] IMMATURE GRANS % 0.7(H) 0.0 - 0.5 % 05/23/2024 7:15 AM CDT [facility] ABS. LYMPHOCYTES 0.99 0.80 - 4.70 x10'3/uL 05/23/2024 7:15 AM CDT [facility] 05/23/2024 6:25 AM CDT us Beti Velasquez MD LABORATORY Final Result [facility] [id number] [place] [address], * MAGNESIUM (05/23/2024 6:25 AM CDT) Only the most recent of6 resultswithin the time period is included. MAGNESIUM 1.8 1.8 - 2.4 MG/DL 05/23/2024 7:25 AM CDT [facility] 05/23/2024 6:25 AM CDT Beti Velasquez MD LABORATORY Final Result Performing Organization Address [facility] - [place]/[facility] Co de Phone Number [facility] [address] [place] [address], [place] [phone] * Vancomycin Random Level (05/22/2024 6:04 AM CDT) VANCOMYCIN RANDOM 17.8 MCG/ML 05/22/2024 6:26 AM CDT [facility] Comment:NO THERAPEUTIC RANGE AVAILABLE LAST DOSE UNKNOWN LAST DOSE 05/22/2024 6:34 AM CDT [facility] 05/22/2024 6:04 AM CDT Beti Velasquez MD LABORATORY Final Result Performing Organization Address [facility] [place] de Phone Number [facility] [address] [place] [address], [place] [phone] * MRI KNEE RT WO CON (05/21/2024 5:00 PM CDT) Anatomical Region Laterality Modality Knee Magnetic Resonan ce 05/21/2024 11:0 3 PM CDT Impressions 05/21/2024 11:12 PM CDT IMPRESSION: 1. Extensive degeneration and degenerative tearing of the body and posterior horn of the lateral meniscus. 2. Tearing of the body and posterior horn of the medial meniscus with horizontally oriented component involving the body and vertically oriented longitudinal component involving the posterior horn. 3. Low-grade sprains of the medial collateral ligament and iliotibial band but no fluid-filled tear is seen. 4. Large joint effusion with synovitis and intra-articular bodies in the medial joint gutter. A large volume of heterogeneous joint fluid extends into the popliteus recess. 5. Multifocal articular cartilage degeneration as above. 6. No marrow signal abnormality is seen to suggest acute fracture or contusion. Referred By: Interpreted By: Min Barber DO, 05/21/2024 11:03 PM Narrative 05/21/2024 11:12 PM CDT [facility] [address] [place] [address] MRI of the right knee without contrast Exam Date: 05/21/2024 4:19 PM History: Severe right knee pain and swelling without acute injury. History of partial meniscal tear many years ago. Comparison Studies: CT of the right knee 05/20/2024. TECHNIQUE: Multiplanar, multisequence MR imaging of the right knee was performed without intravenous contrast. FINDINGS: * Menisci: There is abnormal morphology of the body and posterior horn of the medial meniscus with horizontally oriented increased signal intensity in the body of the medial meniscus extending to the tibial articular surface and more vertically oriented increased signal intensity extending through the periphery of the posterior horn. This does not extend into the root of the posterior horn. There is marked truncation of the body and posterior horn of the lateral meniscus with associated signal abnormality reflecting extensive degeneration and degenerative tearing. * Ligaments: The anterior and posterior cruciate ligaments are intact. There is mild thickening and periligamentous edema along the medial collateral ligament reflecting low-grade sprain but no fluid-filled tear is seen. There is also edema and mild thickening of the distal iliotibial band but no fluid-filled tear is seen. The lateral collateral ligament proper, biceps femoris tendon, and popliteus tendon are intact. * Extensor Mechanism: The distal quadriceps and patellar tendons are intact. No evidence is seen to suggest gross disruption of the medial or lateral patellar retinacula.. * Joint: There is a large joint effusion with ill-defined intermediate signal intensity throughout the joint, greatest in the suprapatellar region, reflecting synovitis. Foci of low signal intensity within the joint, most prominently within the medial joint gutter measuring up to 18 mm reflecting intra-articular bodies. A large volume of heterogeneous joint fluid extends into the popliteus recess. * Articular Cartilage: The central and posterior weightbearing zones of the medial tibial plateau are devoid of articular cartilage. There is focal moderate articular cartilage degeneration along the medial femoral condyle centrally with more mild diffuse articular cartilage degeneration throughout the medial femoral condyle. There is full-thickness loss of articular cartilage along the posterior weightbearing zone of the lateral tibial plateau. There is mild diffuse thinning of articular cartilage along the lateral femoral condyle. There is moderate articular cartilage degeneration along the lateral patellar facet. * Miscellaneous: No marrow signal abnormality is seen to suggest acute fracture or contusion. There is mild edema in the tibial plateaus and medial femoral condyle that is likely reactive to articular cartilage degeneration. Findings seen on CT likely reflected tiny osteophytes. Procedure Note Min Barber, DO - 05/21/2024 [facility] [address] [place] [address] MRI of the right knee without contrast Exam Date: 05/21/2024 4:19 PM History: Severe right knee pain and swelling without acute injury.History of partial meniscal tear many years ago. Comparison Studies: CT of the right knee 05/20/2024. TECHNIQUE: Multiplanar, multisequence MR imaging of the right knee wasperformed without intravenous contrast. FINDINGS: * Menisci: There is abnormal morphology of the body and posterior horn ofthe medial meniscus with horizontally oriented increased signal intensityin the body of the medial meniscus extending to the tibial articularsurface and more vertically oriented increased signal intensity extendingthrough the periphery of the posterior horn. This does not extend intothe root of the posterior horn. There is marked truncation of the bodyand posterior horn of the lateral meniscus with associated signalabnormality reflecting extensive degeneration and degenerative tearing. * Ligaments: The anterior and posterior cruciate ligaments are intact.There is mild thickening and periligamentous edema along the medialcollateral ligament reflecting low-grade sprain but no fluid-filled tearis seen. There is also edema and mild thickening of the distal iliotibialband but no fluid-filled tear is seen. The lateral collateral ligamentproper, biceps femoris tendon, and popliteus tendon are intact. * Extensor Mechanism: The distal quadriceps and patellar tendons areintact. No evidence is seen to suggest gross disruption of the medial orlateral patellar retinacula.. * Joint: There is a large joint effusion with ill-defined intermediatesignal intensity throughout the joint, greatest in the suprapatellarregion, reflecting synovitis. Foci of low signal intensity within thejoint, most prominently within the medial joint gutter measuring up to 18mm reflecting intra-articular bodies. A large volume of heterogeneousjoint fluid extends into the popliteus recess. * Articular Cartilage: The central and posterior weightbearing zones ofthe medial tibial plateau are devoid of articular cartilage. There isfocal moderate articular cartilage degeneration along the medial femoralcondyle centrally with more mild diffuse articular cartilage degenerationthroughout the medial femoral condyle. There is full-thickness loss ofarticular cartilage along the posterior weightbearing zone of the lateraltibial plateau. There is mild diffuse thinning of articular cartilagealong the lateral femoral condyle. There is moderate articular cartilagedegeneration along the lateral patellar facet. * Miscellaneous: No marrow signal abnormality is seen to suggest acutefracture or contusion. There is mild edema in the tibial plateaus andmedial femoral condyle that is likely reactive to articular cartilagedegeneration. Findings seen on CT likely reflected tiny osteophytes. IMPRESSION: 1. Extensive degeneration and degenerative tearing of the body andposterior horn of the lateral meniscus. 2. Tearing of the body and posterior horn of the medial meniscus withhorizontally oriented component involving the body and vertically orientedlongitudinal component involving the posterior horn. 3. Low-grade sprains of the medial collateral ligament and iliotibialband but no fluid-filled tear is seen. 4. Large joint effusion with synovitis and intra-articular bodies in themedial joint gutter. A large volume of heterogeneous joint fluid extendsinto the popliteus recess. 5. Multifocal articular cartilage degeneration as above. 6. No marrow signal abnormality is seen to suggest acute fracture orcontusion. Referred By: Interpreted By: Min Barber DO, 05/21/2024 11:03 PM Jose Minor DO MRI Final Result * (ABNORMAL) SED RATE, ERYTHROCYTE (ESR) (05/21/2024 5:29 AM CDT) Only the most recent of2 resultswithin the time period is included. ESR 78(H) 0 - 20 MM/HR 05/21/2024 7:06 AM CDT [facility] 05/21/2024 5:29 AM CDT Belle Waddell PA-C LABORATORY Final Result [facility] [address] [place] [address], [place] [phone] * (ABNORMAL) C-REACTIVE PROTEIN (05/21/2024 5:29 AM CDT) Only the most recent of2 resultswithin the time period is included. Pathologist [facility] C-REACTIVE PROTEIN 3.59(H) <0.29 mg/dL 05/21/2024 10:52 AM CDT [facility] 05/21/2024 5:29 AM CDT Belle Waddell PA-C LABORATORY Final Result [facility] [address] [place] [address], [place] [phone] * URIC ACID BLOOD (05/21/2024 5:29 AM CDT) Pathologist [facility] URIC ACID 4.8 3.5 - 7.2 MG/DL 05/21/2024 10:32 AM CDT [facility] 05/21/2024 5:29 AM CDT Jose Minor DO LABORATORY Final Result [facility] [address] [place] [address], [place] [phone] * Arthrocentesis (05/20/2024 3:33 PM CDT) Narrative Eduin, Mablene, MD - 05/20/2024 3:33 PM CDT Imelda Ribeiro MD 05/20/2024 3:46 PM Arthrocentesis Date/Time: 05/20/2024 3:33 PM Performed by: Imelda Ribeiro MD Authorized by: Imelda Ribeiro MD Consent: Consent obtained: Written and verbal Consent given by: Patient Risks, benefits, and alternatives were discussed: yes Risks discussed: Bleeding, infection, pain, nerve damage and incomplete drainage [place] protocol: Procedure explained and questions answered to patient or proxy's satisfaction: yes Relevant documents present and verified: yes Test results available: yes Imaging studies available: yes Required blood products, implants, devices, and special equipment available: yes Site/side marked: yes Immediately prior to procedure, a time out was called: yes Patient identity confirmed: Verbally with patient Location: Location: Knee Knee: R knee Anesthesia: Anesthesia method: Local infiltration Local anesthetic: Lidocaine 1% w/o epi Procedure details: Preparation: Patient was prepped and draped in usual sterile fashion Needle gauge: 18 G Ultrasound guidance: no Approach: Superior Aspirate amount: 30 Aspirate characteristics: Serous Steroid injected: no Specimen collected: yes Post-procedure details: Dressing: Adhesive bandage Procedure completion: Tolerated Imelda Ribeiro MD PROCEDURE/MINOR SURGICAL ORDERA BLES Final Result * CULTURE, BODY FLUID W/ GRAM STAIN (05/20/2024 3:00 PM CDT) SPEC DESCRIPTION KNEE,RIGHT 05/20/2024 3:10 PM CDT [facility] SPECIAL REQUESTS NO SPECIAL REQUEST 05/20/2024 3:10 PM CDT [facility] GRAM STAIN RESULT MODERATE WHITE BLOOD CELLS SEEN 05/20/2024 7:57 PM CDT [facility] GRAM STAIN RESULT NO ORGANISMS SEEN 05/20/2024 7:57 PM CDT [facility] CULTURE RESULT NO GROWTH 5 DAYS 05/25/2024 7:53 AM CDT [facility] STRUCTURE OF RIGHT KNEE REGION / Unknown 05/20/2024 3:00 PM CDT 05/20/2024 3:12 PM CDT us Imelda Ribeiro MD MICROBIOLOGY - GENERAL ORDERABL ES Final Result Performing Organization Address City/[facility] [place]/ZIP Co de Phone Number [facility] [address] [place] [address], [place] [phone] [facility] [address] [place] [address], [place] [phone] * CRYSTALS, BODY FLUID (05/20/2024 3:00 PM CDT) CRYSTALS (FLUID) PRELIMINARY REPORT: 05/21/2024 12:11 PM CDT [facility] Comment: NO CRYSTALS SEEN. TO BE REVIEWED BY PATHOLOGIST CRYSTAL SOURCE RIGHT KNEE 05/21/2024 12:11 PM CDT [facility] INTERPRETATION THIS CRYSTAL REPORT WAS INTERPRETED BY 05/22/2024 10:18 AM CDT [facility] Comment: DR MISHA WILSON MD THE FLUID IS EXAMINED MICROSCOPICALLY WITH AND WITHOUT POLARIZED LIGHT AND WITH AND WITHOUT FIRST ORDER RED F[employer]ER [employer] TECHNICIAN UNDER 10X AND 40X MAGNIFICATION. THE FLUID CONTAINS MANY WHITE BLOOD CELLS AND FEW RED BLOOD CELLS. THERE ARE NO MONOSODIUM URATE (MSU OR GOUT) OR CALCIUM PYROPHOSPHATE DIHYDRATE (CPPD OR PSEUDOGOUT) CRYSTALS IDENTIFIED. STRUCTURE OF RIGHT KNEE REGION / Unknown 05/20/2024 3:00 PM CDT us Imelda Ribeiro MD BODY FLUIDS AND STOOLS ORDERABL ES Final Result [facility] [address] [place] [address], [place] [phone] * (ABNORMAL) CELL COUNT W/ DIFF BODY FLUID (05/20/2024 3:00 PM CDT) RBC (FLUID) 2,000 CELLS/UL 05/20/2024 3:47 PM CDT [facility] WBC (FLUID) 17,872(HH) CELLS/UL 05/20/2024 3:47 PM CDT [facility] Comment: ALERT VALUE CALLED TO AND READ BACK BY: BAYRN @1547, SEGS (FLUID) 94 % 05/20/2024 3:47 PM CDT [facility] MONO (FLUID) 6 % 05/20/2024 3:47 PM CDT [facility] STRUCTURE OF RIGHT KNEE REGION / Unknown 05/20/2024 3:00 PM CDT us Imelda Ribeiro MD BODY FLUIDS AND STOOLS ORDERABL ES Final Result Performing Organization Address [facility] [place]/ZIP Co de Phone Number [facility] [address] [place] [address], [place] [phone] * GLUCOSE, BODY FLUID (05/20/2024 3:00 PM CDT) GLUCOSE FLUID 8 MG/DL 05/21/2024 12:20 PM CDT [facility] Comment:REFERENCE RANGE NOT ESTABLISHED FOR THIS BODY FLUID. SOURCE (FLUID) KNEE,RIGHT 05/20/2024 3:10 PM CDT [facility] STRUCTURE OF RIGHT KNEE REGION / Unknown 05/20/2024 3:00 PM CDT us Imelda Ribeiro MD BODY FLUIDS AND STOOLS ORDERABL ES Final Result Performing Organization Address [facility]/ZIP Co de Phone Number [facility] [address] [place] [address], [place] [phone] [facility] [address] [place] [address], [place] [phone] * CULTURE, BACTERIA, BLOOD (05/20/2024 1:54 PM CDT) Only the most recent of2 resultswithin the time period is included. SPEC DESCRIPTION BLOOD 05/20/2024 12:33 PM CDT [facility] SPECIAL REQUESTS NO SPECIAL REQUEST 05/20/2024 12:33 PM CDT [facility] CULTURE RESULT NO GROWTH 5 DAYS 05/25/2024 6:53 PM CDT [facility] BLOOD SPECIMEN OBTAINED FOR BLOOD CULTURE / Unknown 05/20/2024 1:54 PM CDT 05/20/2024 2:00 PM CDT Imelda Ribeiro MD MICROBIOLOGY - GENERAL ORDERABL ES Final Result Performing Organization Address City/State/[facility] Co de Phone Number [facility] [address] [place] [address], [place] [phone] [facility] [address] [place] [address], [place] [phone] * CT KNEE RT WO CON (05/20/2024 1:27 PM CDT) Anatomical Region Laterality Modality Knee Computed Tomogra phy 05/20/2024 1:4 8 PM CDT Impressions 05/20/2024 2:01 PM CDT IMPRESSION: 1. Subchondral insufficiency fracture of the medial femoral condyle. There is a questioned subchondral insufficiency fracture of the lateral condyle is well. This could be further evaluated with nonemergent outpatient MRI. 2. Moderate suprapatellar joint effusion and moderate subcutaneous edema/stranding. Correlate for physical exam findings of soft tissue infection. No discrete organized soft tissue fluid collection. 3. Mild to moderate tricompartmental osteoarthritis. Ordered By: IMELDA RIBEIRO Interpreted By: Daron Crocker MD, 05/20/2024 1:48 PM Narrative 05/20/2024 2:01 PM CDT [facility] [address] [place] [address] CT KNEE RT WO CON INDICATION: Marked swelling of right knee with pain TECHNIQUE: CT performed of the right knee without intravenous contrast. Coronal and sagittal reconstructions were obtained. A dose lowering technique was used for this procedure, which may include, but is not limited to, dose reduction techniques, automated exposure control, and/or the use of iterative reconstruction, in accordance with ALARA (As Low As Reasonably Achievable)/Image Gently principle. COMPARISON: None FINDINGS: There is moderate soft tissue edema of the right lower extremity. No discrete soft tissue fluid collections. There is a moderate suprapatellar joint effusion. There is a subchondral insufficiency fracture noted of the medial femoral condyle best seen on coronal series 4 image 29. There is a questioned subchondral insufficiency fracture of the lateral condyle as well as seen on series 4 image 31. This could be further evaluated with nonemergent MRI. Mild to moderate tricompartmental osteoarthritis. Os fabella. Atherosclerotic vascular calcifications are present. Procedure Note Daron Crocker MD - 05/20/2024 [facility] [address] [place] [address] CT KNEE RT WO CON INDICATION: Marked swelling of right knee with pain TECHNIQUE: CT performed of the right knee without intravenous contrast.Coronal and sagittal reconstructions were obtained. A dose loweringtechnique was used for this procedure, which may include, but is notlimited to, dose reduction techniques, automated exposure control, and/orthe use of iterative reconstruction, in accordance with ALARA (As Low AsReasonably Achievable)/Image Gently principle. COMPARISON: None FINDINGS: There is moderate soft tissue edema of the right lower extremity. Nodiscrete soft tissue fluid collections. There is a moderate suprapatellarjoint effusion. There is a subchondral insufficiency fracture noted of themedial femoral condyle best seen on coronal series 4 image 29. There is aquestioned subchondral insufficiency fracture of the lateral condyle aswell as seen on series 4 image 31. This could be further evaluated withnonemergent MRI. Mild to moderate tricompartmental osteoarthritis. Osfabella. Atherosclerotic vascular calcifications are present. IMPRESSION: 1. Subchondral insufficiency fracture of the medial femoral condyle. Thereis a questioned subchondral insufficiency fracture of the lateral condyleis well. This could be further evaluated with nonemergent outpatientMRI. 2. Moderate suprapatellar joint effusion and moderate subcutaneousedema/stranding. Correlate for physical exam findings of soft tissueinfection. No discrete organized soft tissue fluid collection. 3. Mild to moderate tricompartmental osteoarthritis. Ordered By: IMELDA RIBEIRO Interpreted By: Daron Crocker MD, 05/20/2024 1:48 PM us Imelda Ribeiro MD CT Final Result * CT ABD+PEL WWO CON (05/20/2024 1:27 PM CDT) Anatomical Region Laterality Modality Abdomen Computed Tomogra phy 05/20/2024 1:38 PM CDT Impressions 05/20/2024 1:47 PM CDT Impression: 1. No lymphadenopathy or acute findings. 2. Simple appearing cystic structure in the left retroperitoneum located just proximal to the inguinal canal measuring up to 3.0 cm. This is nonspecific but may reflect a lymphocele or spermatic cord hydrocele. 3. Small bilateral hydroceles. 4. Numerous nonobstructing bilateral renal calculi. 5. Benign bilateral adrenal adenomas. 6. Numerous hepatic cysts. 7. Extensive colonic diverticulosis without evidence for acute diverticulitis. Ordered By: IMELDA RIBEIRO Interpreted By: Daron Crocker MD, 05/20/2024 1:38 PM Narrative 05/20/2024 1:47 PM CDT [facility] [address] [facility] [place] [address] CT abdomen and pelvis with and without IV contrast Comparison: CT abdomen pelvis 10/23/2019. Indication: Right lower extremity swelling rule out intra-abdominal adenopathy . Technique: CT imaging was performed of the abdomen and pelvis prior to and following the administration of intravenous contrast. Iodinated contrast was used due to the indications for the examination, to improve disease detection and further define anatomy. Coronal and sagittal reformatted images were generated and reviewed. A dose lowering technique was utilized for this procedure which may include but is not limited to dose reduction techniques, automated exposure control, and/or the use of iterative reconstruction in accordance with ALARA principle. Findings: - Lower Thorax: Partial subsegmental atelectasis of the bilateral lung bases. Motion at the lung bases decreases sensitivity of this examination. No pleural or pericardial effusions. - Liver: Normal in morphology and enhancement. Numerous hypoattenuating foci in the liver. The largest are compatible with benign cysts. The smaller foci are too small to characterize by any imaging modality. The portal and hepatic veins are patent. - Biliary and Gallbladder: No intrahepatic or extrahepatic biliary ductal dilatation. The gallbladder is unremarkable. - Spleen: Normal in appearance. - Pancreas: Normal in appearance. - Adrenal Glands: Benign bilateral adrenal adenomas measuring up to 1.1 cm on the right and 1.3 cm on the left. - Kidneys: Symmetric in size and enhancement. Numerous bilateral nonobstructing renal calculi bilaterally. No suspicious renal lesions. No hydronephrosis. - Abdominal and Pelvic Vasculature: No abdominal aortic aneurysm. Moderate atherosclerotic plaque. - Gastrointestinal Tract: No abnormal dilation or wall thickening. Extensive colonic diverticulosis without evidence for acute diverticulitis. The appendix is within normal limits. - Peritoneum/Mesentery/Retroperitoneum: No free fluid. No free intraperitoneal air. - Lymph Nodes: No retroperitoneal, mesenteric, or pelvic lymphadenopathy. Right common iliac lymph node demonstrates normal reniform shape and measures 8 mm on axial image 120, within normal limits. There is a right inguinal lymph node measuring 9 mm on axial image 131, also within normal limits. No suspicious lymphadenopathy. - Bladder: Normal in appearance. - Pelvic Organs: Small bilateral hydroceles. There is a cystic structure noted near the left retroperitoneum just proximal to the inguinal canal measuring 3.0 cm on axial image 112 of series 3. This is new from prior study 10/23/2019. - Body Wall: Unremarkable. - Musculoskeletal: No aggressive appearing osseous lesions. Moderate to severe lumbar spondylosis. Mild wedge compression deformity of superior endplate of L2 which is unchanged from prior study. Procedure Note Daron Crocker MD - 05/20/2024 [facility] [address] [place] [address] CT abdomen and pelvis with and without IV contrast Comparison: CT abdomen pelvis 10/23/2019. Indication: Right lower extremity swelling rule out intra-abdominaladenopathy . Technique: CT imaging was performed of the abdomen and pelvis prior toand following the administration of intravenous contrast. Iodinatedcontrast was used due to the indications for the examination, to improvedisease detection and further define anatomy. Coronal and sagittalreformatted images were generated and reviewed. A dose lowering techniquewas utilized for this procedure which may include but is not limited todose reduction techniques, automated exposure control, and/or the use ofiterative reconstruction in accordance with ALARA principle. Findings: - Lower Thorax: Partial subsegmental atelectasis of the bilateral lungbases. Motion at the lung bases decreases sensitivity of this examination.No pleural or pericardial effusions. - Liver: Normal in morphology and enhancement. Numerous hypoattenuatingfoci in the liver. The largest are compatible with benign cysts. Thesmaller foci are too small to characterize by any imaging modality. Theportal and hepatic veins are patent. - Biliary and Gallbladder: No intrahepatic or extrahepatic biliary ductaldilatation. The gallbladder is unremarkable. - Spleen: Normal in appearance. - Pancreas: Normal in appearance. - Adrenal Glands: Benign bilateral adrenal adenomas measuring up to 1.1 cmon the right and 1.3 cm on the left. - Kidneys: Symmetric in size and enhancement. Numerous bilateralnonobstructing renal calculi bilaterally. No suspicious renal lesions. Nohydronephrosis. - Abdominal and Pelvic Vasculature: No abdominal aortic aneurysm.Moderate atherosclerotic plaque. - Gastrointestinal Tract: No abnormal dilation or wall thickening.Extensive colonic diverticulosis without evidence for acutediverticulitis. The appendix is within normal limits. - Peritoneum/Mesentery/Retroperitoneum: No free fluid. No freeintraperitoneal air. - Lymph Nodes: No retroperitoneal, mesenteric, or pelvic lymphadenopathy.Right common iliac lymph node demonstrates normal reniform shape andmeasures 8 mm on axial image 120, within normal limits. There is a rightinguinal lymph node measuring 9 mm on axial image 131, also within normallimits. No suspicious lymphadenopathy. - Bladder: Normal in appearance. - Pelvic Organs: Small bilateral hydroceles. There is a cystic structurenoted near the left retroperitoneum just proximal to the inguinal canalmeasuring 3.0 cm on axial image 112 of series 3. This is new from priorstudy 10/23/2019. - Body Wall: Unremarkable. - Musculoskeletal: No aggressive appearing osseous lesions. Moderateto severe lumbar spondylosis. Mild wedge compression deformity of superiorendplate of L2 which is unchanged from prior study. Impression: 1. No lymphadenopathy or acute findings. 2. Simple appearing cystic structure in the left retroperitoneum locatedjust proximal to the inguinal canal measuring up to 3.0 cm. This isnonspecific but may reflect a lymphocele or spermatic cord hydrocele. 3. Small bilateral hydroceles. 4. Numerous nonobstructing bilateral renal calculi. 5. Benign bilateral adrenal adenomas. 6. Numerous hepatic cysts. 7. Extensive colonic diverticulosis without evidence for acutediverticulitis. Ordered By: IMELDA RIBEIRO Interpreted By: Daron Crocker MD, 05/20/2024 1:38 PM us Imelda Ribeiro MD CT Final Result * USV JENNIE DUPLEX LOW EXT RT (05/20/2024 1:07 PM CDT) Anatomical Region Laterality Modality Extremity Ultrasound 05/20/2024 1:11 PM CDT Impressions 05/20/2024 1:12 PM CDT IMPRESSION: No evidence of DVT within the right lower extremity. Ordered By: IMELDA RIBEIRO Interpreted By: Daron Crocker MD, 05/20/2024 1:11 PM Narrative 05/20/2024 1:12 PM CDT [facility] [address] [place] [address] USV JENNIE DUPLEX LOW EXT RT INDICATION: Right lower extremity swelling TECHNIQUE: Grayscale color and spectral Doppler ultrasound performed of the right lower extremity. COMPARISON: None FINDINGS: The right common femoral, greater saphenous, profunda, femoral, and popliteal veins demonstrate appropriate compressibility, augmentation characteristics, and patent Doppler flow. The posterior tibial vein is patent. No evidence of DVT within the right lower extremity. Procedure Note Daron Crocker MD - 05/20/2024 [facility] [address] [place] [address] USV JENNIE DUPLEX LOW EXT RT INDICATION: Right lower extremity swelling TECHNIQUE: Grayscale color and spectral Doppler ultrasound performed ofthe right lower extremity. COMPARISON: None FINDINGS: The right common femoral, greater saphenous, profunda, femoral, andpopliteal veins demonstrate appropriate compressibility, augmentationcharacteristics, and patent Doppler flow. The posterior tibial vein ispatent. No evidence of DVT within the right lower extremity. IMPRESSION: No evidence of DVT within the right lower extremity. Ordered By: IMELDA RIBEIRO Interpreted By: Daron Crocker MD, 05/20/2024 1:11 PM us Imelda Ribeiro MD VASC Final Result * XR CHEST PORTABLE (05/20/2024 12:50 PM CDT) Only the most recent of2 resultswithin the time period is included. Anatomical Region Laterality Modality Chest Radiographic Wendi ging 05/20/2024 12:5 3 PM CDT Impressions 05/20/2024 12:54 PM CDT IMPRESSION: No acute cardiopulmonary findings. Ordered By: IMELDA RIBEIRO Interpreted By: Daron Crocker MD, 05/20/2024 12:53 PM Narrative 05/20/2024 12:54 PM CDT [facility] [address] [place] [address] XR CHEST PORTABLE INDICATION: Shortness of breath TECHNIQUE: Portable AP view of the chest. COMPARISON: Chest radiograph 04/01/2024. FINDINGS: The cardiomediastinal silhouette is within normal limits. There is no pulmonary consolidation. No pleural effusions or pneumothorax. Minimal bibasilar atelectasis or scarring, similar to prior. Atherosclerotic calcifications of the thoracic aorta. Procedure Note Daron Crocker MD - 05/20/2024 [facility] [address] [place] [address] XR CHEST PORTABLE INDICATION: Shortness of breath TECHNIQUE: Portable AP view of the chest. COMPARISON: Chest radiograph 04/01/2024. FINDINGS: The cardiomediastinal silhouette is within normal limits. There is nopulmonary consolidation. No pleural effusions or pneumothorax. Minimalbibasilar atelectasis or scarring, similar to prior. Atheroscleroticcalcifications of the thoracic aorta. IMPRESSION: No acute cardiopulmonary findings. Ordered By: IMELDA RIBEIRO Interpreted By: Daron Crocker MD, 05/20/2024 12:53 PM us Imelda Ribeiro MD GENERAL IMAGING Final Result * ECG 12 lead (05/20/2024 12:36 PM CDT) Only the most recent of2 resultswithin the time period is included. 05/20/2024 12:3 6 PM CDT Narrative 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[id number] Requested By: IMELDA RIBEIRO Order Number: [id number] Reading MD: Liat Genao Measurements Intervals [place] Rate: 103 P: 78 IN: 191 QRS: 262 QRSD: 101 T: 67 QT: 332 QTc: 436 Interpretive Statements SINUS TACHYCARDIA RIGHT AXIS DEVIATION [QRS AXIS > 100] LOW QRS VOLTAGE IN EXTREMITY LEADS [QRS DEFLECTION < 0.5 mV IN LIMB LEADS] INFERIOR MYOCARDIAL INFARCTION , OF INDETERMINATE AGE [40+ ms Q WAVE AND/OR ST/T ABNORMALITY IN II/aVF] Poor R Wave Progression Compared to ECG 04/01/2024 20:59:53 No significant changes Procedure Note Liat Genao MD - 05/25/2024 [facility] Test Date: 2024-05-20 Pat Name: SUNNY SAAVEDRA Department: 85 Room: 123 Gender: Male 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[id number] Requested By: IMELDA RIBEIRO Order Number: [id number] Reading MD: Liat Geano Measurements Intervals [place] Rate: 103 P: 78 IN: 191 QRS: 262 QRSD: 101 T: 67 QT: 332 QTc: 436 Interpretive Statements SINUS TACHYCARDIA RIGHT AXIS DEVIATION [QRS AXIS > 100] LOW QRS VOLTAGE IN EXTREMITY LEADS [QRS DEFLECTION < 0.5 mV IN LIMBLEADS] INFERIOR MYOCARDIAL INFARCTION , OF INDETERMINATE AGE [40+ ms Q WAVEAND/OR ST/T ABNORMALITY IN II/aVF] Poor R Wave Progression Compared to ECG 04/01/2024 20:59:53 No significant changes Imelda Ribeiro MD ECG ORDERABLES Final Result Performing Organization Address [facility]/ZIP Co de Phone Number [facility] ([facility]) RAD * LACTIC ACID W REFLEX (SEPSIS) (05/20/2024 12:20 PM CDT) Only the most recent of2 resultswithin the time period is included. Pathologist [facility] LACTIC ACID VENOUS 1.6 0.4 - 2.0 MMOL/L 05/20/2024 1:05 PM CDT [facility] 05/20/2024 12:2 0 PM CDT Imelda Ribeiro MD LABORATORY Final Result Performing Organization Address City/[facility]/ZIP Co de Phone Number [facility] [address] [place] [address], [place] [phone] * PRO-BRAIN NATRIURETIC PEPTIDE (05/20/2024 12:20 PM CDT) Only the most recent of2 resultswithin the time period is included. PRO-B TYPE NATRIURETIC PEPTIDE 68 <125 PG/ML 05/20/2024 1:00 PM CDT [facility] Comment: CUT POINTS ESTABLISHED BY [employer] ON NT PROBNP (ICON) STUDY (2006). AGE INDEPENDENT: <300 PG/ML HAS A 99% NEGATIVE PREDICTIVE VALUE FOR EXCLUDING ACUTE CHF <50 YEARS: >450 PG/ML IS CONSISTENT WITH ACUTE CHF 50-75 YEARS: >900 PG/ML IS CONSISTENT WITH ACUTE CHF >75 YEARS: >1800 PG/ML IS CONSISTENT WITH ACUTE CHF IN PATIENTS WITH RENAL INSUFFICIENCY (GFR <60), >1200 PG/ML YIELDS A DIAGNOSTIC SENSITIVITY AND SPECIFICITY OF 89% AND 72% FOR ACUTE CHF. 05/20/2024 12:2 0 PM CDT us Imelda Ribeiro MD LABORATORY Final Result Performing Organization Address City/[facility]/ZIP Co de Phone Number [facility] [address] [place] [address], [place] [phone] * PARTIAL THROMBOPLASTIN TIME,PTT (05/20/2024 12:20 PM CDT) PTT 34.8 27.0 - 36.8 SEC 05/20/2024 12:45 PM CDT [facility] 05/20/2024 12:2 0 PM CDT us Imelda Ribeiro MD LABORATORY Final Result Performing Organization Address City/[facility]/ZIP Co de Phone Number [facility] [address] [place] [address], [place] [phone] * PROTIME/INR, VENOUS (05/20/2024 12:20 PM CDT) PROTIME 12.3 9.1 - 12.4 SEC 05/20/2024 12:45 PM CDT [facility] INR 1.1 05/20/2024 12:45 PM CDT [facility] Comment: Recommend INR ranges for Oral Anticoagulant Therapy: Mechanical Cardiac Values 2.5-3.5 All others indication 2.0-3.0 05/20/2024 12:2 0 PM CDT us Imelda Ribeiro MD LABORATORY Final Result [facility] [address] [place] [address], [place] [phone] * (ABNORMAL) COMPREHENSIVE METABOLIC PANEL (05/20/2024 12:20 PM CDT) Only the most recent of6 resultswithin the time period is included. GLUCOSE 113(H) 70 - 99 MG/DL 05/20/2024 1:00 PM CDT [facility] BUN 12 7 - 18 MG/DL 05/20/2024 1:00 PM CDT [facility] CREATININE S/P/B 0.88 0.7 - 1.3 MG/DL 05/20/2024 1:00 PM CDT [facility] SODIUM S/P/B 137 136 - 145 MMOL/L 05/20/2024 1:00 PM CDT [facility] POTASSIUM S/P/B 4.1 3.5 - 5.1 MMOL/L 05/20/2024 1:00 PM CDT [facility] CHLORIDE S/P/B 98(L) 100 - 108 MMOL/L 05/20/2024 1:00 PM CDT [facility] CO2 27.8 21 - 32 MMOL/L 05/20/2024 1:00 PM CDT [facility] CALCIUM S/P/B 9.3 8.5 - 10.1 MG/DL 05/20/2024 1:00 PM CDT [facility] BILIRUBIN TOTAL S/P/B 0.3 0.2 - 1.2 MG/DL 05/20/2024 1:00 PM CDT [facility] TOTAL PROTEIN S/P/B 7.4 6.4 - 8.2 G/DL 05/20/2024 1:00 PM T [facility] ALBUMIN S/P/B 3.2(L) 3.4 - 5.0 G/DL 05/20/2024 1:00 PM T [facility] AST 19 15 - 37 U/L 05/20/2024 1:00 PM T [facility] ALT 26 16 - 60 U/L 05/20/2024 1:00 PM T [facility] ALKALINE PHOSPHATASE S/P/B 65 50 - 136 U/L 05/20/2024 1:00 PM T [facility] ANION GAP 11.2 5 - 15 MMOL/L 05/20/2024 1:00 PM T [facility] BUN CREATININE RATIO 13.6 6 - 26 05/20/2024 1:00 PM [facility] A/G RATIO 0.8(L) 1.0 - 2.0 RATIO 05/20/2024 1:00 PM [facility] GFR ESTIMATE >90 >90 ML/MIN/1.7 3 M2 05/20/2024 1:00 PM [facility] Comment: NOTE: eGFR is not calculated for patients <18 years of age. This is an estimated GFR calculation using the new CKD EPI creatinine equation without race and so does not require a correction factor for race. This estimated GFR should not be used for calculating drug doses. 05/20/2024 12:2 0 PM CDT us Imelda Ribeiro MD LABORATORY Final Result [facility] [address] [place] [phone], * TROPONIN, QUANT (05/20/2024 12:20 PM CDT) Only the most recent of2 resultswithin the time period is included. TROPONIN I HIGH SENSITIVITY 6 0 - 75 ng/L 05/20/2024 12:56 PM CDT [facility] Comment: HIGH DOSES OF BIOTIN, TROPONIN-SPECIFIC AUTOANTIBODIES, AND ANTIBODY THERAPY CONTAINING HAMA MAY INTERFERE WITH THIS TEST RESULT. CORRELATION TO CLINICAL HISTORY AND PRESENTATION RECOMMENDED. 05/20/2024 12:2 0 PM CDT us Imelda Ribeiro MD LABORATORY Final Result Performing Organization Address [facility]/ZIP Co de Phone Number [facility] [address] [place] [address], [place] [phone] * (ABNORMAL) LIPASE (05/20/2024 12:20 PM CDT) LIPASE 15(L) 16 - 77 UNITS/L 05/20/2024 1:00 PM CDT [facility] 05/20/2024 12:2 0 PM CDT us Imelda Ribeiro MD LABORATORY Final Result Performing Organization Address [facility] Co de Phone Number [facility] [address] [place] [address], [place] [phone] * CK (CPK) (05/20/2024 12:20 PM CDT) CPK 57 39 - 308 U/L 05/20/2024 1:00 PM CDT [facility] 05/20/2024 12:2 0 PM CDT us Imelda Ribeiro MD LABORATORY Final Result Performing Organization Address City/[facility] Co de Phone Number [facility] [address] [place] [address], [place] [phone] * PROCALCITONIN (PCT) (04/06/2024 4:05 AM ROLL FORMING SUPERVISOR) Only the most recent of5 resultswithin the time period is included. Pathologist [facility] Procalcitonin <0.05 0.00 - 0.25 NG/ML 04/06/2024 10:00 AM ROLL FORMING SUPERVISOR [facility] Comment: PROCALCITONIN INTERPRETATION GUIDELINES LOWER RESPIRATORY TRACT INFECTIONS (LRTI): USE OF PCT IN INPATIENT OR EMERGENCY SITUATION INITIATION OF ANTIBIOTICS PCT VALUE INTERPRETATION <0.10 NG/ML ANTIBIOTIC THERAPY STRONGLY DISCOURAGED. 0.10-0.25 NG/ML ANTIBIOTIC THERAPY DISCOURAGED. 0.26-0.50 NG/ML ANTIBIOTIC THERAPY ENCOURAGED. >0.50 NG/ML ANTIBIOTIC THERAPY STRONGLY ENCOURAGED. DISCONTINUE ANTIBIOTICS PCT LESS THAN OR EQUAL TO 0.25 NG/ML OR DELTA PCT >80 PERCENT DELTA PCT= PCT(PEAK)-PCT(CURRENT)/PCT(PEAK)X100% STUDIES HAVE EVALUATED PCT PROTOCOLS IN THESE PATIENTS AND FOUND THAT FOR PATIENTS WHO ARE CLINICALLY STABLE AND ARE TREATED AT THE ED OR ARE HOSPITALIZED, THE INITIATION OF ANTIBIOTIC THERAPY SHOULD BE BASED ON CLINICAL GROUNDS AND A PCT VALUE OF GREATER THAN OR EQUAL TO 0.26 NG/ML. IF PCT REMAINS LOWER, ANTIBIOTICS CAN BE WITHHELD AND PATIENTS CAN BE REASSESSED CLINICALLY WITHOUT SAFETY CONCERNS. IF PATIENTS ARE CLINICALLY STABLE, AN ALTERNATIVE DIAGNOSIS SHOULD BE CONSIDERED. IF PATIENTS ARE UNSTABLE, THEN ANTIBIOTICS MAY BE CONSIDERED. IF PATIENTS DO NOT IMPROVE IN THE SHORT FOLLOW UP PERIOD OF 6 TO 12 HOURS, CLINICAL RE-EVALUATION AND RE-MEASUREMENT OF PCT IS RECOMMENDED. 04/06/2024 4:05 AM ROLL FORMING SUPERVISOR Mahesh Frank APRN LABORATORY Final Re sult [facility] [address] [place] [address], * (ABNORMAL) CBC, AUTO, NO DIFF (04/04/2024 5:10 AM ROLL FORMING SUPERVISOR) WBC 4.20(L) 4.50 - 11.00 x10'3/uL 04/04/2024 6:05 AM [facility] RBC 4.32(L) 4.70 - 6.10 x10'6/uL 04/04/2024 6:05 AM [facility] HGB 13.7(L) 14.0 - 18.0 G/DL 04/04/2024 6:05 AM [facility] HCT 41.4(L) 43.0 - 54.0 % 04/04/2024 6:05 AM [facility] MCV 95.8(H) 80.0 - 94.0 FL 04/04/2024 6:05 AM [facility] MCH 31.7(H) 27.0 - 31.0 PG 04/04/2024 6:05 AM [facility] MCHC 33.1 32.0 - 36.0 G/DL 04/04/2024 6:05 AM [facility] RDW 13.0 11.5 - 14.5 % 04/04/2024 6:05 AM [facility] PLT 197 130 - 400 x10'3/uL 04/04/2024 6:05 AM [facility] MPV 10.1 9.3 - 12.2 FL 04/04/2024 6:05 AM [facility] 04/04/2024 5:10 AM ROLL FORMING SUPERVISOR Mahesh Frank APRN LABORATORY Final Re sult [facility] [address] [place] [address], [place] [phone] * CTA CHEST PE PROTOCOL (04/03/2024 3:11 PM ROLL FORMING SUPERVISOR) Only the most recent of2 resultswithin the time period is included. Anatomical Region Laterality Modality Chest Computed Tomogra phy 04/03/2024 6:42 PM ROLL FORMING SUPERVISOR Impressions 04/03/2024 6:48 PM ROLL FORMING SUPERVISOR IMPRESSION: 1. No evidence of pulmonary embolism. 2. Decreased left basilar opacity with mild residual atelectasis. 3. Multiple hepatic hypodensities may represent cysts, however correlation with outpatient liver protocol CT or MRI is again recommended. Referred By: SIDDHARTHA CEE Interpreted By: Gato Ward MD, 04/03/2024 6:42 PM Narrative 04/03/2024 6:48 PM [place]LL [place] [address] EXAMINATION: CTA CHEST WITH CONTRAST EXAM DATE/TIME: 04/03/2024 3:02 PM REASON FOR EXAM: Tachycardia, shortness of breath COMPARISON: Chest CTA 04/01/2024 TECHNIQUE: Axial CT images of the chest are obtained following uneventful intravenous administration of 80 cc Isovue-370. Subsequent coronal and sagittal reformatted sequences are obtained for evaluation. In addition 3-D rotational MIP imaging of the thoracic arterial vasculature is created on a separate workstation for review. A dose lowering technique was used for this procedure, which may include, but is not limited to, dose reduction technique, automated exposure control, iterative reconstruction, ALARA (As Low As Reasonably Achievable), or Image Gently techniques. FINDINGS: There is no evidence of pulmonary embolism. Heart size is normal. There is no pericardial effusion. Lungs are without mass or airspace consolidation. Left basilar opacity has decreased with mild residual atelectasis. There is no pleural effusion or pneumothorax. No intrathoracic lymphadenopathy is seen. Limited evaluation of the upper abdominal viscera shows no acute abnormalities. Multiple hepatic hypodensities. No acute osseous lesions are seen. Procedure Note Gato Ward MD - 04/03/2024 [place] [id number] EXAMINATION: CTA CHEST WITH CONTRAST EXAM DATE/TIME: 04/03/2024 3:02 PM REASON FOR EXAM: Tachycardia, shortness of breath COMPARISON: Chest CTA 04/01/2024 TECHNIQUE: Axial CT images of the chest are obtained following uneventfulintravenous administration of 80 cc Isovue-370. Subsequent coronal andsagittal reformatted sequences are obtained for evaluation. In addition3-D rotational MIP imaging of the thoracic arterial vasculature is createdon a separate workstation for review. A dose lowering technique was usedfor this procedure, which may include, but is not limited to, dosereduction technique, automated exposure control, iterative reconstruction,ALARA (As Low As Reasonably Achievable), or Image Gently techniques. FINDINGS: There is no evidence of pulmonary embolism. Heart size is normal. There is no pericardial effusion. Lungs are without mass or airspace consolidation. Left basilar opacityhas decreased with mild residual atelectasis. There is no pleuraleffusion or pneumothorax. No intrathoracic lymphadenopathy is seen. Limited evaluation of the upper abdominal viscera shows no acuteabnormalities. Multiple hepatic hypodensities. No acute osseous lesions are seen. IMPRESSION: 1. No evidence of pulmonary embolism. 2. Decreased left basilar opacity with mild residual atelectasis. 3. Multiple hepatic hypodensities may represent cysts, howevercorrelation with outpatient liver protocol CT or MRI is againrecommended. Referred By: SIDDHARTHA CEE Interpreted By: Gato Ward MD, 04/03/2024 6:42 PM Mahesh Frank APRN CT Final Re sult * CORONAVIRUS (COVID-19) MOLECULAR (04/01/2024 9:15 PM ROLL FORMING SUPERVISOR) CORONAVIRUS SARS COV 2 RNA NEGATIVE NEGATIVE 04/01/2024 9:53 PM ROLL FORMING SUPERVISOR [facility] Comment: NEGATIVE RESULTS DO NOT RULE OUT COVID 19 AND SHOULD NOT BE USED THE SOLE BASIS FOR TREATMENT OR PATIENT MANAGEMENT DECISIONS, INCLUDING INFECTION CONTROL DECISIONS. NEGATIVE RESULTS SHOULD BE CONSIDERED IN THE CONTEXT OF A PATIENT'S RECENT EXPOSURES, HISTORY AND THE PRESENCE OF CLINICAL SIGNS AND SYMPTOMS CONSISTENT WITH COVID 19. THE ID NOW COVID-19 2.0 TEST HAS BEEN AUTHORIZED BY THE FDA UNDER EAU FOR USE BY AUTHORIZED LABORATORIES. PERFORMED BY NUCLEIC ACID AMPLIFICATION FOR MOLECULAR QUALITATIVE DETECTION OF SARS-COV-2. SPECIMEN TYPE NASAL 04/01/2024 9:12 PM ROLL FORMING SUPERVISOR [facility] NASOPHARYNGEAL SWAB / Unknown 04/01/2024 9:15 PM ROLL FORMING SUPERVISOR us Siddhartha Cee MD MICROBIOLOGY - GENERAL ORD ERABLES Final Result Performing Organization Address [facility] Co de Phone Number [facility] [address] [place] [address], [place] [phone] * (ABNORMAL) INFLUENZA A & B (04/01/2024 9:15 PM ROLL FORMING SUPERVISOR) SPECIMEN TYPE NASOPHARYNX 04/01/2024 9:32 PM ROLL FORMING SUPERVISOR [facility] INFLUENZA A POSITIVE(A) NEGATIVE 04/01/2024 10:03 PM ROLL FORMING SUPERVISOR [facility] Comment: CALLED RESULT CALLED TO NURIS Theodore 2200 RS READ BACK AND VERIFIED INFLUENZA B NEGATIVE NEGATIVE 04/01/2024 10:03 PM [facility] NASOPHARYNGEAL SWAB / Unknown 04/01/2024 9:15 PM ROLL FORMING SUPERVISOR us Siddhartha Cee MD MICROBIOLOGY - GENERAL ORD ERABLES Final Result Performing Organization Address [facility] Co de Phone Number [facility] [address] [place] [address], [place] [phone] * (ABNORMAL) D-DIMER, QUANTITATIVE (04/01/2024 9:15 PM ROLL FORMING SUPERVISOR) D-DIMER 2,015(H) 0 - 500 ng{FEU}/mL 04/01/2024 10:09 PM ROLL FORMING SUPERVISOR [facility] Comment: D-Dimer values less than or equal to 500 ng/mL FEU have a negative predictive value of >95% for exclusion of deep vein thrombosis and pulmonary embolism. In patients over 50 (who tend to have higher normal baseline D-Dimer values), recent studies suggest age-adjusted D-Dimer cutoff values (calculated as: age [years] x 10 ng/mL) result in equivalent outcomes and no additional false negative findings. 04/01/2024 9:15 PM ROLL FORMING SUPERVISOR Siddhartha Cee MD LABORATORY Final Resu lt [facility] [address] [place] [address], from Last 3 Months Insurance [employer] Advance Directives * Full Code (Latest Code Status on File) Date Activated Date Inactivated Comments 05/20/2024 5:17 PM 05/23/2024 2:04 PM * DNR Date Activated Date Inactivated Comments 04/02/2024 3:07 AM 04/07/2024 5:59 PM Care Teams Denture Waxer Relationship Specialty Start Date End Date Janay Salas PA-C [address] [place] [address] [address] [place] [address] PCP - General PHYSICIAN INSPECTOR FIREARMS 04/01/24 Wayne Garrison MD [address] [place] [address] Consulting Physician SLEEP & RESPIRATORY CARE 04/07/24 04/07/25
--- OUTSIDE RECORDS SUMMARY | 2024-05-26 15:34 | XMS_ITS | Encounter Summary ---
Author Organization [facility] Address [address] [place] [address] Care Team Providers Care Mechanical Inspector Name Role Phone Janay Salas PA-C Primary Care Provider [phone] Wayne Garrison MD Unavailable [phone] Encounter Details Date Type Department Care Team (Latest Contact Info) Description 05/25/2024 Travel Social History Tobacco Use Types Packs/Day Years Used Date Smoking Tobacco: Former Cigarettes 1 54.1 1 971 - 04/01/2024 Smokeless Tobacco: Never Alcohol Use Standard Drinks/Week Comments Never 0 (1 standard drink = 0.6 oz pur e alcohol) B1300 Health Literacy Answer Date Recor ded How often do you need to hav e someone help you when you read instructions, pamphlets, or other written material from your doctor or pharmacy? Never 05/20/2024 [facility] Utilities Answer Date Recorded In the past 12 months [address] [facility] [address] [employer], gas, oil, or water [employer] threatened to shut off services in your [...] week 05/20/2024 How often do you attend chur or church services? Never 05/20/2024 Do you belong to any clubs o r organizations such as roman catholic groups, unions, fraternal or athletic groups, or [...] Recorded Patient Health Questionnaire-2 Score 1 05/20/2024 [facility] - Occupational Stress Questionnaire Answer Date [...] any time in the past 12 m [facility], were you homeless or living in a residential (including now)? 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 Answer Date of Assessment Author Status No 05/20/2024 5:46 PM CDT Radha Condon, Nurse Central Office Equipment Engineer II Active * Do you have serious difficulty walking or climbing stairs? Answer Date of Assessment Author Status No 05/20/2024 5:46 PM JOSE EDUARDOT Radha Condon, Nurse Central Office Equipment Engineer II Active * Do you have difficulty dressing or bathing? Answer Date of Assessment Author Status No 05/20/2024 5:46 PM CDT Radha Condon Nurse Central Office Equipment Engineer II Active * Because of a physical, mental, or emotional condition, do you have difficulty doing errands alone such as visiting a doctor's office or shopping? Answer Date of Assessment Author Status No 05/20/2024 5:46 PM CDT Radha Condon Nurse Melinda II Active documented as of this encounter Mental Status * Because of a physical, mental, or emotional condition, do you have serious difficulty concentrating, remembering, or making decisions? Answer Entry Date Author Status No 05/20/2024 5:46 PM CDT Radha Condon Nurse Central Office Equipment Engineer II Active documented in this encounter Plan of Treatment Upcoming Encounters Date Type Department Care Team (Late st Contact Info) Description 05/28/2024 9:30 AM CDT Hospital Encounter [facility] [address] [place] [address] Dimitry Wilcox, DO [address] [facility] [place] [address] 06/01/2024 9:30 AM CDT Appointment [facility] [id number] [place] [address] Dimitry Wilcox, DO [address] [facility] [place] [address] 06/02/2024 9:30 AM CDT Appointment [facility] [id number] [place] [address] Dimitry Wilcox, DO [address] [facility] [place] [address] 06/04/2024 9:30 AM CDT Appointment [facility] [id number] [place] [address] Dimitry Wilcox, DO [address] [place] [address] 06/08/2024 9:30 AM CDT Appointment [facility] [address] [place] [address] Dimitry Wilcox, DO [address] [place] [address] 06/09/2024 9:30 AM CDT Appointment [facility] [address] [place] [address] Dimitry Wilcox, DO [address] [place] [address] 06/11/2024 9:30 AM CDT Appointment [facility] [address] [place] [address] Dimitry Wilcox, DO [address] [place] [address] 06/15/2024 9:30 AM CDT Appointment [facility] [address] [place] [address] Dimitry Wilcox, DO [address] [place] [address] [address] 06/16/2024 9:30 AM CDT Appointment [facility] [address] [place] [address] Dimitry Wilcox, DO [address] [place] [address] 06/18/2024 9:30 AM CDT Appointment [facility] [address] [place] [address] Dimitry Wilcox, DO [address] [place] [address] 06/22/2024 9:30 AM CDT Appointment [facility] [address] [place] [address] Dimitry Wilcox, DO [address] [place] [address] 06/23/2024 9:30 AM CDT Appointment [facility] [address] [place] [address] Dimitry Wilcox, DO [address] [place] [address] 06/25/2024 9:30 AM CDT Appointment [facility] [address] [place] [address] Dimitry Wilcox, DO [address] [place] [address] 06/29/2024 9:30 AM CDT Appointment [facility] [address] [place] [address] Dimitry Wilcox, DO [address] [place] [address] [place] [address] 06/30/2024 9:30 AM CDT Appointment [facility] [address] [place] [address] Dimitry Wilcox, DO [address] [place] [address] 07/02/2024 9:30 AM CDT Appointment [facility] [address] [place] [address] Dimitry Wilcox, DO [address] [place] [address] 07/07/2024 8:00 AM CDT Appointment [facility] [address] [place] [address] Janay Salas PA-C [address] [facility] [place] [address] 07/07/2024 9:30 AM CDT Appointment [facility] [address] [place] [address] Dimitry Wilcox, DO [address] [place] [address] [address] 07/09/2024 9:30 AM CDT Appointment [facility] [address] [place] [address] Dimitry Wilcox, DO [address] [place] [address] [address] 07/13/2024 9:30 AM CDT Appointment [facility] [address] [place] [address] Dimitry Wilcox, DO [address] [address] 07/14/2024 9:30 AM CDT Appointment [facility] [address] [place] [address] Dimitry Wilcox, DO [address] [address] 07/16/2024 9:30 AM CDT Appointment [facility] [address] [place] [address] Dimitry Wilcox, DO [address] [place] [address] 07/20/2024 9:30 AM CDT Appointment [facility] [address] [place] [address] Dimitry Wilcox, DO [address] [place] [address] 07/21/2024 9:30 AM CDT Appointment [facility] [address] [place] [address] Dimitry Wilcox, DO [address] [place] [address] 07/23/2024 9:30 AM CDT Appointment [facility] [address] [place] [address] Dimitry Wilcox, DO [address] [place] [address] [place] [address] 07/27/2024 9:30 AM CDT Appointment [facility] [address] [place] [address] Dimitry Wilcox, DO [address] [place] [address] 07/28/2024 9:30 AM CDT Appointment [facility] [address] [place] [address] Dimitry Wilcox, DO [address] [place] [address] 2024 9:30 AM CDT Appointment [facility] [address] [place] [address] Dimitry Wilcox, DO [address] [facility] [address] 08/03/2024 9:30 AM CDT Appointment [facility] [address] [place] [address] Dimitry Wilcox, DO [address] [place] [address] 08/04/2024 9:30 AM CDT Appointment [facility] [address] [place] [address] Dimitry Wilcox, DO [address] [address] 08/06/2024 9:30 AM CDT Appointment [facility] [address] [place] [address] Dimitry Wilcox, DO [address] [address] 10/07/2024 8:40 AM CDT Office Visit [facility] Multispecialty Care - [facility] [address] [place] [id number] Mahesh Tran DO [address] [place] [address] documented as of this encounter Goals Goal Patient Goal Type Associated Problems Recent Progress Patient-Stated? Author Patient will return to prior living situation and remain independent in ADLs upon discharge from hospital Qi Del Castillo, RN documented as of this encounter Visit Diagnoses Not on filedocumented in this encounter Care Teams Mechanical Inspector Relationship Specialty Start Date End Date Janay Salas PA-C [address] [place], [place] [id number] [place] [address] PCP - General PHYSICIAN TOUR DIRECTOR 04/01/24 Wayne Garrison MD [address] [place] [address] Consulting Physician SLEEP & RESPIRATORY CARE 04/07/24 04/07/25 documented as of this encounter
--- OUTSIDE RECORDS SUMMARY | 2024-05-26 15:34 | XMS_ITS | Encounter Summary ---
Author Organization [facility] Address [address] [place] [address] Care Team Providers Care Metallurgical Lab Technician Name Role Phone Janay Salas PA-C Primary Care Provider [phone] Wayne Garrison MD Unavailable [phone] Reason for Visit * Consultation/Treatment (Routine) - Authorized Specialty Diagnoses / Procedures Referred By Contact Referred To Contact PULMONARY REHABILITATION / [facility] Cardiopulmonary Rehab Diagnoses COPD (chronic obstructive pulmonary disease) ([facility]) Dimitry Wilcox, DO [address] [address] Phone: tel: fax: [facility] [address] [place] [address] Phone: tel:[phone] Referral ID Status Reason Start Date Expiration Date Visits Requested Visits Authorized [id number] Authorized Pulmonary Rehabilitation 04/28/2025 36 36 Encounter Details Date Type Department Care Team (Late st Contact Info) Description 05/25/2024 9:25 AM T Hospital Encounter [facility] [address] [place] [address] Dimitry Wilcox DO [address] [address] Arrived Social History Tobacco Use Types Packs/Day Years [...] from your doctor or pharmacy? Never 05/20/2024 [facility] Utilities Answer Date Recorded In the past 12 months has e [employer], gas, oil, or water [employer] threatened to shut off services in your [...] week 05/20/2024 How often do you attend [facility] or anabaptism services? Never 05/20/2024 Do you belong to any clubs o r organizations such as adventist groups, unions, fraternal or athletic groups, or [...] Recorded Patient Health Questionnaire-2 Score 1 05/20/2024 [facility] - Occupational Stress Questionnaire Answer Date Recorded [...] any time in the past 12 m [facility], were you homeless or living in a usp (including now)? 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 Answer Date of Assessment Author Status No 05/20/2024 5:46 PM CDT Radha Condon, Nurse Project Drilling Engineer II Active * Do you have serious difficulty walking or climbing stairs? Answer Date of Assessment Author Status No 05/20/2024 5:46 PM CDT Radha Condon, Nurse Project Drilling Engineer II Active * Do you have difficulty dressing or bathing? Answer Date of Assessment Author Status No 05/20/2024 5:46 PM CDT Radha Condon, Nurse Project Drilling Engineer II Active * Because of a physical, mental, or emotional condition, do you have difficulty doing errands alone such as visiting a doctor's office or shopping? Answer Date of Assessment Author Status No 05/20/2024 5:46 PM CDT Radha Condon, Nurse Project Drilling Engineer II Active documented as of this encounter Mental Status * Because of a physical, mental, or emotional condition, do you have serious difficulty concentrating, remembering, or making decisions? Answer Entry Date Author Status No 05/20/2024 5:46 PM CDT Radha Condon, Nurse Project Drilling Engineer II Active documented in this encounter Plan of Treatment Upcoming Encounters Date Type Department Care Team (Late st Contact Info) Description 05/28/2024 9:30 AM CDT Hospital Encounter [facility] [address] [place] [address] Dimitry Wilcox, [address] [address] 06/01/2024 9:30 AM CDT Appointment [facility] [address] [place] [address] Dimitry Wilcox, DO [address] [place] [address] 06/02/2024 9:30 AM CDT Appointment [facility] [address] [place] [address] Dimitry Wilcox, DO [address] [place] [address] 06/04/2024 9:30 AM CDT Appointment [facility] [address] [place] [address] Dimitry Wilcox, DO [address] [place] [place] [address] 06/08/2024 9:30 AM CDT Appointment [facility] [address] [place] [address] Dimitry Wilcox, DO [address] [place] [address] [place] [address] 06/09/2024 9:30 AM CDT Appointment [facility] [address] [place] [address] Dimitry Wilcox, DO [address] [place] [address] 06/11/2024 9:30 AM CDT Appointment [facility] [address] [place] [address] Dimitry Wilcox, DO [address] [place] [place] [address] 06/15/2024 9:30 AM CDT Appointment [facility] [address] [place] [address] Dimitry Wilcox, DO [address] [address] 06/16/2024 9:30 AM CDT Appointment [facility] [address] [place] [address] Dimitry Wilcox, DO [address] [place] [address] 06/18/2024 9:30 AM CDT Appointment [facility] [address] [place] [address] Dimitry Wilcox, DO [address] [place] [address] 06/22/2024 9:30 AM CDT Appointment [facility] [address] [place] [address] Dimitry Wilcox, DO [address] [address] 06/23/2024 9:30 AM CDT Appointment [facility] [address] [place] [address] Dimitry Wilcox, DO [address] [place] [address] [place] [address] 06/25/2024 9:30 AM CDT Appointment [facility] [address] [place] [address] Dimitry Wilcox, DO [address] [place] [address] 06/29/2024 9:30 AM CDT Appointment [facility] [address] [place] [address] Dimitry Wilcox, DO [address] [place] [address] 06/30/2024 9:30 AM CDT Appointment [facility] [address] [place] [address] Dimitry Wilcox, DO [address] [place] [address] 07/02/2024 9:30 AM CDT Appointment [facility] [address] [place] [address] Dimitry Wilcox, DO [address] [place] [address] [place] [address] 07/07/2024 8:00 AM CDT Appointment [facility] [address] [place] [address] Janay Salas PA-C [address] [place], [place] [address] [place] [address] 07/07/2024 9:30 AM CDT Appointment [facility] [address] [place] [address] Dimitry Wilcox, DO [address] [place] [place] [address] 07/09/2024 9:30 AM CDT Appointment [facility] [address] [place] [address] Dimitry Wilcox, DO [address] [place] [address] 07/13/2024 9:30 AM CDT Appointment [facility] [address] [place] [address] Dimitry Wilcox, DO [address] [place] [address] 07/14/2024 9:30 AM CDT Appointment [facility] [address] [place] [address] Dimitry Wilcox, DO [address] [place] [place] [address] 07/16/2024 9:30 AM CDT Appointment [facility] [address] [place] [address] Dimitry Wilcox, DO [address] [address] 07/20/2024 9:30 AM CDT Appointment [facility] [address] [place] [address] Dimitry Wilcox, DO [address] [address] 07/21/2024 9:30 AM CDT Appointment [facility] [address] [place] [address] Dimitry Wilcox, DO [address] [address] 07/23/2024 9:30 AM CDT Appointment [facility] [address] [place] [address] Dimitry Wilcox, DO [address] [place] [address] 07/27/2024 9:30 AM CDT Appointment [facility] [address] [place] [address] Dimitry Wilcox, DO [address] [place] [address] 07/28/2024 9:30 AM CDT Appointment [facility] [id number] [place] [address] Dimitry Wilcox, DO [address] [place] [address] 2024 9:30 AM CDT Appointment [facility] [address] [place] [address] Dimitry Wilcox, DO [address] [place] [address] 08/03/2024 9:30 AM CDT Appointment [facility] [address] [place] [address] Dimitry Wiclox, DO [address] [place] [address] 08/04/2024 9:30 AM CDT Appointment [facility] [address] [place] [address] Dimitry Wilcox, DO [address] [place] [address] 08/06/2024 9:30 AM CDT Appointment [facility] [address] [place] [address] Dimitry Wilcox DO [address] [address] 10/07/2024 8:40 AM CDT Office Visit [facility]ialty Care - [facility] [address] [place] [address] aMhesh Tran DO [address] [place] [address] documented as of this encounter Goals Goal Patient Goal Type Associated Problems Recent Progress Patient-Stated? 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, RN documented as of this encounter Visit Diagnoses Not on filedocumented in this encounter Care Teams Metallurgical Lab Technician Relationship Specialty Start Date End Date Janay Salas PA-C [address] [place] [address] [address] [place] [address] PCP - General PHYSICIAN RF ENGINEER 04/01/24 Wayne Garrison MD [address] [place] [address] Consulting Physician SLEEP & RESPIRATORY CARE 04/07/24 04/07/25 documented as of this encounter
== END 2024-05-26 14:25 | disposition home or self-care (01) ==
PROVIDERS: PCP Physician Assistant Medical; Visit Provider Physician Assistant Medical
DX: Z12.2 Encounter for screening for malignant neoplasm of respiratory organs (principal); Z87.891 Personal history of nicotine dependence
CPT/HCPCS: 71271